=== PATIENT | female | born 1950 | race Caucasian/White ===

== ENCOUNTER 2016-11-09 18:28 | Inpatient (IN) ==
[2016-11-09 19:14] LABS: Basophils # 0.1 K/mcL (0.0-0.2); Basophils % 0.7 %; Eosinophils # 0.3 K/mcL (0.0-0.6); Eosinophils % 3.2 %; Hematocrit 35.6 % (35.3-44.9); Hemoglobin 11.9 g/dL (11.5-15.4); Immature Granulocytes % 0.4 % (0-4); Lymphocytes # 1.4 K/mcL (0.6-4.6); Lymphocytes % 16.5 %; Mean Corpuscular HGB Conc 33.4 g/dL (31.6-35.5); Mean Corpuscular Hemoglobin 29.3 pg (28.0-33.3); Mean Corpuscular Volume 87.7 fL (83.0-100.0); Mean Platelet Volume 10.3 fL (9.4-12.4); Monocytes # 0.6 K/mcL (0.0-1.3); Monocytes % 6.6 %; Neutrophils # 6.2 K/mcL (1.6-8.9); Platelet Count 188 K/mcL (140-400); Red Blood Count 4.06 M/mcL (3.82-4.97); Red Cell Distribution Width 13.2 % (11.5-14.5); Segmented Neutrophils % 72.6 %
[2016-11-09 19:22] LABS: INR 2.2; Prothrombin Time 24.8 Seconds (9.4-12.1)
[2016-11-09 19:25] LABS: Activated Partial Thrombo Time 44.2 Seconds (26.0-36.0)
[2016-11-09 19:31] LABS: BUN/Creatinine Ratio 34 (6-26); Blood Urea Nitrogen 28 mg/dL (7-20); Calcium 8.9 mg/dL (8.6-10.8); Carbon Dioxide 32 mEq/L (19-29); Chloride 99 mEq/L (98-109); Glucose 249 mg/dL (70-99); Osmolality,Calculated 298 (280-300); Potassium 4.8 mEq/L (3.5-4.5); Sodium 137 mEq/L (136-145); eGFR For African Americans > 60 (> 60); eGFR For Non-African Americans > 60 (> 60)
[2016-11-09 19:32] LABS: Albumin 2.9 g/dL (3.5-5.0); Albumin/Globulin Ratio 0.8 (1.1-2.2); Bilirubin,Direct 0.1 mg/dL (0.0-0.5); Bilirubin,Indirect 0.1 mg/dL (0.0-1.2); Bilirubin,Total 0.2 mg/dL (0.2-1.2); Globulin 3.7 g/dL (2.4-3.5); Total Protein 6.6 g/dL (6.0-8.3)
[2016-11-09] MEDS ORDERED: Nitroglycerin 0.4 MG TAB.SUBL SL PRN (19:52)
[2016-11-09] MEDS ORDERED: Aspirin 81 MG TAB.CHEW PO ONE (20:30)
--- NOTE | 2016-11-09 20:36 | Emergency Department Note ---
Disposition Clinical Impression: NSTEMI (non-ST elevated myocardial infarction), Angina at rest Disposition: Admitted As Inpatient Referrals: Pedro Luis Whitfield MD [Primary Care Provider] - Forms: ED Satisfaction Letter Chest Pain HPI - General Chief Complaint: ED Chest Pain Stated Complaint: cp Source: EMS Mode of arrival: EMS Limitations: no limitations Vital Signs Reviewed: Yes Nursing Notes Reviewed: Yes - History of Present Illness Pt complaint: chest pain Onset (ago): hour(s) (3) Duration: constant Onset: during rest Pain Location: substernal Severity scale (1-10): 10 Quality: heaviness Pain Radiation: none Improves with: nothing Worsens with: nothing Associated symptoms: Reports: nausea. Denies: vomiting, diaphoresis, sense of impending doom, cough Treatments prior to arrival chest pain: none - Related Data Home Medications Medication Instructions Recorded Confirmed Esomeprazole Magnesium [Nexium] 40 mg PO DAILY 02/18/15 05/17/16 Pregabalin [Lyrica] 50 mg PO TID 09/29/15 05/17/16 Previous Rx's Medication Instructions Recorded Cholecalciferol (D-3) [Vitamin D] 2,000 unit PO DAILY tablet 07/05/16 Collagenase Oint [Santyl] 1 appl TP DAILY tube 07/05/16 FLUoxetine HCl [Prozac] 20 mg PO DAILY capsule 07/05/16 Fluticasone Propionate Nasal 50 mcg NS DAILY bottle 07/05/16 [Flonase] Insulin Glargine,Hum.rec.anlog 50 unit SQ HS #0 07/05/16 [Lantus Solostar] Lactulose 30 gm PO DAILY udc 07/05/16 MOM Conc [MILK OF MAGNESIA conc] 15 ml PO Q48H ud.liq 07/05/16 Ondansetron ODT [Zofran ODT] 4 mg SL Q4HR PRN #0 tab.rapdis 07/05/16 Oxymetazoline [Afrin] 2 spray NS Q12HR PRN #0 bottle 07/05/16 Patient Taking Own Medication 1 each IM Q4W each 07/05/16 Preparation H Ointment 1 appl RC QID PRN #0 tube 07/05/16 Sennosides/Docusate Sodium [Senna 1 each PO DAILY tablet 07/05/16 Plus] Simethicone [Gas-X] 80 mg PO QID PRN #0 tab.chew 07/05/16 Simvastatin [Zocor] 40 mg PO HS 365 Days 07/05/16 Sotalol [Betapace] 80 mg PO Q12HR tablet 07/05/16 Terazosin [Hytrin] 10 mg PO HS capsule 07/05/16 Warfarin [Coumadin] 0.5 mg PO DAILY@1800 tablet 07/05/16 Warfarin [Coumadin] 4 mg PO DAILY@1800 tablet 07/05/16 lamoTRIgine [Lamictal] 100 mg PO HS tablet 07/05/16 Allergies Allergy/AdvReac Type Severity Reaction Status Date / Time cephalexin [From Keflex] Allergy Hives Verified 03/27/16 16:22 Penicillins Allergy Hives Verified 03/27/16 16:22 venom-honey bee Allergy Anaphylaxis Verified 03/27/16 16:22 [bee venom (honey bee)] All systems ED: reviewed and negative except as stated. 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 tubal ligation - Social History Smoking Status: Never smoker Alcohol use: Reports: none Drug use: Reports: none Physical Exam - General General appearance: alert, in no apparent distress - Head Head exam: atraumatic, normocephalic, normal inspection - Eye Eye exam: Present: normal appearance, PERRL, EOMI - ENT ENT exam: normal exam, normal oropharynx, mucous membranes moist - Neck Neck exam: Present: normal inspection, full ROM, trachea midline - Chest Chest inspection: Present: normal inspection, symmetric chest wall rise - Respiratory Respiratory exam: Present: normal lung sounds bilaterally - Cardiovascular Cardiovascular exam: Present: regular rate, normal rhythm, normal heart sounds - Abdominal Exam Abdominal exam: Present: soft, Non-Tender. Absent: tenderness, distention, guarding, rebound, rigidity - Expanded Lower Extremity Exam Lower leg exam: Present: other (Decreased strength lower extremities secondary to stroke patient is unable to ambulate) - Back Exam Back exam: Present: normal inspection, full ROM. Absent: tenderness - Neurological Exam Neurological exam: Present: alert, oriented X3 - Psychiatric Psychiatric exam: Present: flat affect - Skin Skin exam: Present: warm, dry, intact, normal color Course - Consultations Consultation #1: dr. chao serial trop, no plavis, aspirin ok, echo, cardiology consult Time: 20:32 Vital Signs Temperature 98.1 F 11/09/16 18:29 Pulse Rate 85 11/09/16 18:29 Respiratory Rate 16 11/09/16 18:29 Blood Pressure 191/80 11/09/16 18:29 O2 Sat by Pulse Oximetry 94 11/09/16 18:29 Temperature 98.1 F 11/09/16 18:29 Pulse Rate 75 11/09/16 20:30 Respiratory Rate 20 11/09/16 20:30 Blood Pressure 126/74 11/09/16 20:30 O2 Sat by Pulse Oximetry 95 11/09/16 20:45 Oxygen Delivery Oxygen Delivery Nasal Cannula Chest Pain - Differential Diagnosis Likely: atypical chest pain - Medical Records Medical records reviewed: Yes I reviewed the patient's medical records. - Lab Data Lab results reviewed: Yes I reviewed the patient's lab results. Result diagrams: 11/09/16 18:58 11/09/16 18:58 Lab Results 11/09/16 11/09/16 11/09/16 Range/Units 18:58 18:58 18:58 WBC (4.3-11.1) K/mcL RBC (3.82-4.97) M/mcL Hgb (11.5-15.4) g/dL Hct (35.3-44.9) % MCV (83.0-100.0) fL MCH (28.0-33.3) pg MCHC (31.6-35.5) g/dL RDW (11.5-14.5) % Plt Count (140-400) K/mcL MPV (9.4-12.4) fL Immature Gran % (0-4) % Seg Neutrophils % % Lymphocytes % % Monocytes % % Eosinophils % % Basophils % % Neutrophils # (1.6-8.9) K/mcL Lymphocytes # (0.6-4.6) K/mcL Monocytes # (0.0-1.3) K/mcL Eosinophils # (0.0-0.6) K/mcL Basophils # (0.0-0.2) K/mcL PT 24.8 H (9.4-12.1) Seconds INR 2.2 APTT 44.2 H (26.0-36.0) Seconds Sodium (136-145) mEq/L Potassium (3.5-4.5) mEq/L Chloride (98-109) mEq/L Carbon Dioxide (19-29) mEq/L BUN (7-20) mg/dL Creatinine (0.57-1.11) mg/dL Est GFR ( Amer) (> 60) Est GFR (Non-Af Amer) (> 60) BUN/Creatinine Ratio (6-26) Glucose (70-99) mg/dL Calculated Osmolality (280-300) Calcium (8.6-10.8) mg/dL Total Bilirubin 0.2 (0.2-1.2) mg/dL Direct Bilirubin 0.1 (0.0-0.5) mg/dL Indirect Bilirubin 0.1 (0.0-1.2) mg/dL AST 16 (5-34) Units/L ALT 10 (0-55) Units/L Alkaline Phosphatase 117 (38-126) Units/L Troponin I (0-0.03) ng/mL B-Natriuretic Peptide 87 (0-100) pg/mL Serum Total Protein 6.6 (6.0-8.3) g/dL Albumin 2.9 L (3.5-5.0) g/dL Globulin 3.7 H (2.4-3.5) g/dL Albumin/Globulin Ratio 0.8 L (1.1-2.2) Lipase 20 (8-78) Units/L 11/09/16 11/09/16 11/09/16 Range/Units 18:58 18:58 18:58 WBC 8.5 (4.3-11.1) K/mcL RBC 4.06 (3.82-4.97) M/mcL Hgb 11.9 (11.5-15.4) g/dL Hct 35.6 (35.3-44.9) % MCV 87.7 (83.0-100.0) fL MCH 29.3 (28.0-33.3) pg MCHC 33.4 (31.6-35.5) g/dL RDW 13.2 (11.5-14.5) % Plt Count 188 (140-400) K/mcL MPV 10.3 (9.4-12.4) fL Immature Gran % 0.4 (0-4) % Seg Neutrophils % 72.6 % Lymphocytes % 16.5 % Monocytes % 6.6 % Eosinophils % 3.2 % Basophils % 0.7 % Neutrophils # 6.2 (1.6-8.9) K/mcL Lymphocytes # 1.4 (0.6-4.6) K/mcL Monocytes # 0.6 (0.0-1.3) K/mcL Eosinophils # 0.3 (0.0-0.6) K/mcL Basophils # 0.1 (0.0-0.2) K/mcL PT (9.4-12.1) Seconds INR APTT (26.0-36.0) Seconds Sodium 137 (136-145) mEq/L Potassium 4.8 H (3.5-4.5) mEq/L Chloride 99 (98-109) mEq/L Carbon Dioxide 32 H (19-29) mEq/L BUN 28 H (7-20) mg/dL Creatinine 0.83 (0.57-1.11) mg/dL Est GFR ( Amer) > 60 (> 60) Est GFR (Non-Af Amer) > 60 (> 60) BUN/Creatinine Ratio 34 H (6-26) Glucose 249 H (70-99) mg/dL Calculated Osmolality 298 (280-300) Calcium 8.9 (8.6-10.8) mg/dL Total Bilirubin (0.2-1.2) mg/dL Direct Bilirubin (0.0-0.5) mg/dL Indirect Bilirubin (0.0-1.2) mg/dL AST (5-34) Units/L ALT (0-55) Units/L Alkaline Phosphatase (38-126) Units/L Troponin I 0.17 H* (0-0.03) ng/mL B-Natriuretic Peptide (0-100) pg/mL Serum Total Protein (6.0-8.3) g/dL Albumin (3.5-5.0) g/dL Globulin (2.4-3.5) g/dL Albumin/Globulin Ratio (1.1-2.2) Lipase (8-78) Units/L - Radiology Data Radiology results reviewed: Yes I reviewed the patient's radiology results. - EKG Data EKG shows normal: sinus rhythm Rate: normal Interpretation: nonspecific ST-T wave changes Critical Care Time Critical Care Time: Yes Total Critical Care Time: 35 Attestation: Critical care performed: Time is exclusive of separately billable procedures. Time includes: direct patient care, patient reassessment, coordination of patient care, interpretation of data (laboratory data, radiology data, and respiratory data), review of patient's medical records, medical consultation and documentation of patient care. Procedures included in critical care time: Procedures excluded from critical care time:
[2016-11-09] MEDS ORDERED: Nitroglycerin 25 MG/250 ML INFUS..BTL IVC SCH (21:15)
[2016-11-09] MEDS: Nitroglycerin 25 MG/250 ML INFUS..BTL IVC SCH (21:47)
[2016-11-09] MEDS ORDERED: *HR* Morphine 2 MG/ML SYRINGE IVP ONE (23:24)
[2016-11-09] MEDS ORDERED: 0.9 % Sodium Chloride 500 ML ONE (23:36)
[2016-11-10] MEDS ORDERED: Naloxone 0.4 MG/ML INJ IVP PRN (00:37)
--- NOTE | 2016-11-10 00:37 | Internal Med History&Physical ---
Date of Encounter: 11/10/16 Time of Encounter: 00:36 Assessment and Plan (1) NSTEMI (non-ST elevated myocardial infarction) Current visit: Yes Status: Acute Pt is on nitroglycerine infusion - continue. INR is therapeutic. Continue aspirin. Cardiology consultation, for possible cardiac catheterization. Check lipid panel. (2) CVA (cerebral vascular accident) Current visit: Yes Status: Chronic supportive care. will need further rehab after discharge Qualifiers: CVA mechanism: unspecified Qualified Code(s): I63.9 - Cerebral infarction, unspecified (3) DM type 2 (diabetes mellitus, type 2) Current visit: Yes Status: Chronic Start sliding scale insulin Qualifiers: Diabetes mellitus complication status: with unspecified complications Diabetes mellitus chcf insulin use: with moth exterminator use Qualified Code(s) : E11.8 - Type 2 diabetes mellitus with unspecified complications; Z79.4 - long term care pharmacist (current) use of insulin (4) Atrial fibrillation Current visit: No Status: Resolved Pt now in sinus rhythm. continue anticoagulation Qualifiers: Atrial fibrillation type: paroxysmal Qualified Code(s): I48.0 - Paroxysmal atrial fibrillation (5) Hypertension Current visit: Yes Status: Chronic Continue home medications, but hold while on NTG infusion Qualifiers: Hypertension type: essential hypertension Qualified Code(s): I10 - Essential (primary) hypertension (6) Chronic anticoagulation Current visit: Yes Status: Chronic On warfarin. Monitor INR Internal Medicine - H&P: HPI Chief complaint: Chest pain Admitted From: Emergency Dept Plans for Post Hospital Care: Transfer [facility]irement Facility History of present illness: Ms. Beaver is a 66 year old female With h/o atrial fibrillation on anticoagulation with warfarin, CHF, coronary artery disease, CVA (Jun 2016) with left sided weakness (in rehab), diabetes, GERD, hyperlipidemia, hypertension. She presents with sharp / heavy, continuous central chest pain, 10/10 in severity; radiating to both arms. Pain started yesterday afternoon, unrelated to exertion and persisted after presentation to the ER. She reports some nausea but no vomiting. She denies palpitations, sweating, shortness of breath, cough, expectoration, abdominal pain. She has a Coronado catheter in place. She was evaluated in the emergency department and was noted have elevated troponin of 0.17. Her INR was 2.2 and no further anticoagulation was recommended by marketing account manager. She was started on aspirin, nitroglycerine infusion , after the ER physician discussed with the marketing account manager Dr. Dixon. She is admitted to the hospitalist service for further management. Past Med Surg Social Fam HX - Past Medical History Medical history: atrial fibrillation, CHF, coronary artery disease, CVA, diabetes, GERD, glaucoma, hyperlipidemia, hypertension, pulmonary embolus, renal disease Psychiatric history: anxiety, bipolar, depression - Past Surgical History Surgical History: angioplasty/stent, cholecystectomy, herniorrhaphy, hysterectomy, knee replacement - Social History Smoking Status: Never smoker Smokeless Tobacco Status: No Alcohol use: none Drug use: none - Family History Mother Family Member Ethnicity: Non- Living Status: Hx Family Cardiac Disorders: Yes Hx Family Respiratory Disorders: Yes (COPD) Hx Family Neurologic Disorders: Yes Father Adopted: [place]: Abhinav Harris Family Member Ethnicity: Non- Living Status: Age at : 81 Cause of : heart attack Hx Family Cardiac Disorders: Yes Hx Family Respiratory Disorders: No Hx Family Cancer: No Hx Family GI Disorders: No Hx Family Endocrine Disorder: No Hx Family Neuromuscular Disorders: No Hx Family Neurologic Disorders: No Hx Family HEENT Disorders: No Hx Family Autoimmune Disorders: No Hx Family Reproductive Disorders: No Internal Medicine - H&P: Meds Pregabalin [Lyrica] 50 mg PO TID 09/29/15 [History] Fluticasone Propionate Nasal [Flonase] 50 mcg NS DAILY bottle 07/05/16 [Rx] Lactulose 30 gm PO DAILY udc 07/05/16 [Rx] MOM Conc [MILK OF MAGNESIA conc] 15 ml PO Q48H ud.liq 07/05/16 [Rx] Ondansetron ODT [Zofran ODT] 4 mg SL Q4HR PRN #0 tab.rapdis 07/05/16 [Rx] Sennosides/Docusate Sodium [Senna Plus] 1 each PO DAILY tablet 07/05/16 [Rx] Sotalol [Betapace] 80 mg PO Q12HR tablet 07/05/16 [Rx] Terazosin [Hytrin] 10 mg PO HS capsule 07/05/16 [Rx] lamoTRIgine [Lamictal] 100 mg PO HS tablet 07/05/16 [Rx] ALPRAZolam [Xanax 0.5 MG Tablet] 0.5 mg PO BID PRN 11/09/16 [History] Acetaminophen [Tylenol] 500 mg PO TID PRN 11/09/16 [History] Atorvastatin Calcium [Lipitor] 20 mg PO HS 11/09/16 [History] Cholecalciferol (D-3) [Vitamin D] 3,000 unit PO DAILY 11/09/16 [History] Collagenase Oint [Santyl] 1 appl TP BID 11/09/16 [History] DULoxetine [Cymbalta] 20 mg PO DAILY 11/09/16 [History] Insulin Glargine,Hum.rec.anlog [Lantus Solostar] 40 unit SQ HS 11/09/16 [History ] Omeprazole [PriLOSEC] 20 mg PO DAILY 11/09/16 [History] Oxymetazoline [Afrin] 2 spray NS Q12HR PRN 11/09/16 [History] Paliperidone Palmitate [Invega Sustenna] 156 mg IM QMONTH 11/09/16 [History] Simethicone [Bicarsim] 80 mg PO ACHS 11/09/16 [History] Simethicone [Gas-X] 80 mg PO Q4H PRN 11/09/16 [History] Warfarin perPT [Coumadin perPT] 7 mg PO DAILY 11/09/16 [History] Allergies cephalexin [From Keflex] Allergy (Verified 03/27/16 16:22) Hives Penicillins Allergy (Verified 03/27/16 16:22) Hives venom-honey bee [bee venom (honey bee)] Allergy (Verified 03/27/16 16:22) Anaphylaxis All Systems PM: A 10-system review of systems was performed and is negative for pertinent findings except as documented above in the HPI. - Constitutional Vitals: Temp Pulse Resp BP Pulse Ox 97.6 F 62 17 144/78 96 11/09/16 23:20 11/09/16 23:20 11/09/16 23:20 11/09/16 23:20 11/09/16 23:20 Exam: General: Not in acute distress at the time of my evaluation HEENT: Oral mucosa is moist. No conjunctival palor or scleral icterus Neck: No obvious neck swellings Lungs: Clear to auscultation Cardiac: Regular rate and rhythm. No significant murmurs Abdomen: Soft, non tender. Bowel sounds present Genitourinary: Coronado catheter in place Neurological: Alert and oriented. Known CVA with left sided weakness (LLE >> LUE ) Psych: Not aggressive or agitated Extremities: Mild leg edema Skin: No generalized rash Internal Med - H&P Results - Labs CBC & Chem 7: 11/09/16 18:58 11/10/16 01:30 - EKG Data -: EKG Interpreted by Myself - EKG Data EKG comments: No acute ST-T changes 11/10/16 05:43 - Impressions ITS Impressions Chest X-Ray 11/09/16 18:43 IMPRESSION: No acute cardiopulmonary process. D/ / 11/09/2016 19:23:00 Roxane Yeager MD / lius m Interpreting Provider: Roxane Yeager MD
[2016-11-10] MEDS ORDERED: Dextrose Gel 15 GM PO PRN ×2 (00:41)
[2016-11-10] MEDS ORDERED: *HR* Dextrose 50 % in Water (Syg) 50 ML SYRINGE IVP PRN (00:41)
[2016-11-10] MEDS ORDERED: D5% in Water 1,000 ML IVC PRN (00:41)
[2016-11-10 02:25] LABS: INR 2.2; Prothrombin Time 24.8 Seconds (9.4-12.1)
[2016-11-10 02:42] LABS: BUN/Creatinine Ratio 38 (6-26); Blood Urea Nitrogen 30 mg/dL (7-20); Calcium 8.9 mg/dL (8.6-10.8); Carbon Dioxide 35 mEq/L (19-29); Chloride 99 mEq/L (98-109); Chol/HDL Ratio 3.4 (0-4.9); Cholesterol 142 mg/dL (< 200); Glucose 192 mg/dL (70-99); HDL Cholesterol 42 mg/dL (40-59); LDL Cholesterol,Calculated 75 mg/dL (0-99); Osmolality,Calculated 301 (280-300); Potassium 4.8 mEq/L (3.5-4.5); Sodium 140 mEq/L (136-145); Triglycerides 124 mg/dL (< 150); eGFR For African Americans > 60 (> 60); eGFR For Non-African Americans > 60 (> 60)
[2016-11-10] MEDS: *HR* Morphine 2 MG/ML SYRINGE IVP PRN ×3 (03:10→21:07)
[2016-11-10] MEDS ORDERED: ALPRAZolam 0.5 MG TABLET PO PRN (05:50)
[2016-11-10] MEDS: Aspirin 81 MG TAB.CHEW PO SCH (07:45)
[2016-11-10] MEDS: Fluticasone Propionate Nasal 50 MCG/SPRAY BOTTLE NS SCH (07:45)
[2016-11-10] MEDS: Pregabalin 50 MG CAPSULE PO SCH ×3 (07:45→21:41)
[2016-11-10] MEDS: Insulin LISPRO 300 UNITS/3 ML VIAL SQ SCH ×4 (07:45→21:43)
[2016-11-10] MEDS: Cholecalciferol (D-3) 1,000 UNIT TABLET PO SCH (07:56)
--- NOTE | 2016-11-10 08:45 | Cardiology Consult Note ---
Date of Encounter: 11/10/16 Time of Encounter: 08:45 Assessment and Plan (1) NSTEMI (non-ST elevated myocardial infarction) Current Visit: Yes Status: Acute Per Cardiology: Peak troponin 6.97. Currently on aspirin, statin, and nitro drip. CP continuous , but appears stable. Titrate NTG PRN. Will check limited echo-- last echo 2015 with EF 60-65% and no significant valvular dysfunction. Recommend LHC, however INR currently 2.2 and concerns for another CVA in 06/2016? Will attempt to obtain medical records from [facility]. Will hold Coumadin for now. Discussed and reviewed with Dr. Baudilio Lu and Dr. Hoffmann. (2) CAD (coronary artery disease) Current Visit: No Status: Chronic Per Cardiology: Known history of CAD with last heart catheterization in October 2013 showed patent stent to proximal LAD, 30% in-stent restenosis of the mid LAD, 30% proximal circumflex, mid RCA 30%, ostial right PDA small vessel 60-70% stenosis. Last echo June 2015 showed EF 60-65%, mild diastolic dysfunction, mild pulmonary hypertension, no significant valvular dysfunction. Qualifiers: Coronary Disease-Associated Artery/Lesion type: [place] artery [place] vs. transplanted heart: [place] heart Associated angina: angina presence unspecified Qualified Code(s): I25.10 - Atherosclerotic heart disease of [place] coronary artery without angina pectoris (3) Atrial fibrillation Current Visit: No Status: Chronic Per Cardiology: History of SVT and paroxysmal atrial fibrillation. Average heart rate on telemetry 60, currently sinus rhythm. Will resume home dose of sotalol 80 mg by mouth every 12 hours. Qualifiers: Atrial fibrillation type: paroxysmal Qualified Code(s): I48.0 - Paroxysmal atrial fibrillation (4) Chronic anticoagulation Current Visit: Yes Status: Chronic Per Cardiology: On Coumadin for paroxysmal atrial defibrillation and had CVA April 2016 at [facility]. Current INR 2.2. Will hold for now in anticipation of LHC during hospital stay. Discussion w patient/family: The assessment and plan as outlined above was discussed with the patient who expressed understanding and agreement. All questions were answered. Thank you for involving us in the care of your patient. Please call with any questions. History of Present Illness Consult date: 11/10/16 Requesting physician: Roman Sanchez Consult reason: NSTEMI Chief complaint: CP History of present illness: Ms. Sd is a 66 year old female with a relevant past medical history of CAD, SVT, atrial fibrillation on sotalol and Coumadin, hypertension, diabetes moist 2, hyperlipidemia, sleep apnea, peripheral vascular disease with carotid endarterectomy, and CVA April 2016. Last seen by myself in July 2016 in office. Was noted to have had a CVA at [facility] in April 2016. Cardiology consult today for non-STEMI. Patient reports developed midsternal chest pain and heaviness yesterday afternoon at rest. She indicates accompanying shortness of breath and bilateral arm pain. Reports chest pain has been continuous and currently about a 4 out of 10. She reports continued left-sided weakness from her stroke. She now reports she believes she's had 2 strokes, April 2016 and reported in June 2016. Denies any fever, chills, nausea, vomiting, diarrhea. Denies any awareness of any active bleeding or blood loss. Denies any palpitations, dizziness, or falls. Past Med Surg Social Fam HX - Past Medical History Attestation: Yes The following information was validated with the patient. Source: patient, old records reviewed Medical history: atrial fibrillation, CHF, coronary artery disease, CVA, diabetes, GERD, glaucoma, hyperlipidemia, hypertension, pulmonary embolus, renal disease Psychiatric history: anxiety, bipolar, depression - Past Surgical History Surgical History: angioplasty/stent, cholecystectomy, herniorrhaphy, hysterectomy, knee replacement - Social History Smoking Status: Never smoker Smokeless Tobacco Status: No Alcohol use: none Drug use: none - Family History Mother Family Member Ethnicity: Non- Living Status: Hx Family Cardiac Disorders: Yes Hx Family Respiratory Disorders: Yes (COPD) Hx Family Neurologic Disorders: Yes Father Adopted: [place]: Abhinav Harris Family Member Ethnicity: Non- Living Status: Age at : 81 Cause of : heart attack Hx Family Cardiac Disorders: Yes Hx Family Respiratory Disorders: No Hx Family Cancer: No Hx Family GI Disorders: No Hx Family Endocrine Disorder: No Hx Family Neuromuscular Disorders: No Hx Family Neurologic Disorders: No Hx Family HEENT Disorders: No Hx Family Autoimmune Disorders: No Hx Family Reproductive Disorders: No Medications and Allergies Pregabalin [Lyrica] 50 mg PO TID 09/29/15 [History] Fluticasone Propionate Nasal [Flonase] 50 mcg NS DAILY bottle 07/05/16 [Rx] Lactulose 30 gm PO DAILY udc 07/05/16 [Rx] MOM Conc [MILK OF MAGNESIA conc] 15 ml PO Q48H ud.liq 07/05/16 [Rx] Ondansetron ODT [Zofran ODT] 4 mg SL Q4HR PRN #0 tab.rapdis 07/05/16 [Rx] Sennosides/Docusate Sodium [Senna Plus] 1 each PO DAILY tablet 07/05/16 [Rx] Sotalol [Betapace] 80 mg PO Q12HR tablet 07/05/16 [Rx] Terazosin [Hytrin] 10 mg PO HS capsule 07/05/16 [Rx] lamoTRIgine [Lamictal] 100 mg PO HS tablet 07/05/16 [Rx] ALPRAZolam [Xanax 0.5 MG Tablet] 0.5 mg PO BID PRN 11/09/16 [History] Acetaminophen [Tylenol] 500 mg PO TID PRN 11/09/16 [History] Atorvastatin Calcium [Lipitor] 20 mg PO HS 11/09/16 [History] Cholecalciferol (D-3) [Vitamin D] 3,000 unit PO DAILY 11/09/16 [History] Collagenase Oint [Santyl] 1 appl TP BID 11/09/16 [History] DULoxetine [Cymbalta] 20 mg PO DAILY 11/09/16 [History] Insulin Glargine,Hum.rec.anlog [Lantus Solostar] 40 unit SQ HS 11/09/16 [History ] Omeprazole [PriLOSEC] 20 mg PO DAILY 11/09/16 [History] Oxymetazoline [Afrin] 2 spray NS Q12HR PRN 11/09/16 [History] Paliperidone Palmitate [Invega Sustenna] 156 mg IM QMONTH 11/09/16 [History] Simethicone [Bicarsim] 80 mg PO ACHS 11/09/16 [History] Simethicone [Gas-X] 80 mg PO Q4H PRN 11/09/16 [History] Warfarin perPT [Coumadin perPT] 7 mg PO DAILY 11/09/16 [History] Allergies cephalexin [From Keflex] Allergy (Verified 03/27/16 16:22) Hives Penicillins Allergy (Verified 03/27/16 16:22) Hives venom-honey bee [bee venom (honey bee)] Allergy (Verified 03/27/16 16:22) Anaphylaxis All Systems Review: A 10-system review of systems was performed and is negative for pertinent findings except as documented above in the HPI. - Cardiovascular Cardiovascular: as per HPI, chest pain at rest, dyspnea at rest, radiating jaw, neck or arm pain Physical Examination Vital Signs, Last 4 Hours Temp Pulse Resp BP 11/10/16 07:30 97.7 F 60 16 135/71 General: Conversant, No Apparent Distress HEENT: Atraumatic, Normocephaly, Mucus Membranes Moist Neck: No JVD, Normal carotid pulses Cardiac: Reg Rate and Rhythm, Normal S1 and S2, No Murmur Lungs: Normal Breath Sounds, No Wheeze, Rales, Rhonchi Neuro: Alert and responsive, Other (Left-sided weakness, flat affect, speech slow and deliberate) Abdomen: Soft, Non-Tender, Other (obese) Musculoskeletal: No Chest Wall Tenderness Extremities: No Edema, Normal Pulses Results 11/09/16 18:58 11/10/16 01:30 Lab Results Laboratory Tests 11/09/16 11/10/16 11/10/16 18:58 01:30 01:30 INR 2.2 Troponin I 0.17 H* 6.76 H* 11/10/16 06:35 INR Troponin I 6.97 H* ITS Impressions Chest X-Ray 11/09/16 18:43 IMPRESSION: No acute cardiopulmonary process. D/ / 11/09/2016 19:23:00 Roxane Yeager MD / [facility] Interpreting Provider: Roxane Yeager MD Active Medications Alprazolam (Xanax) 0.5 mg PO BID PRN; Protocol PRN Reason: Anxiety Stop: 05/12/17 05:51 Aspirin (Aspirin) 81 mg PO DAILY LAW Stop: 05/12/17 09:01 Last Admin: 11/10/16 07:45 Dose: 81 mg Atorvastatin Calcium (Lipitor) 20 mg PO HS LAW Stop: 05/12/17 21:01 Dextrose/Water (Dextrose 50% (Syg)) 25 ml IVP AD PRN PRN Reason: Hypoglycemia Stop: 05/12/17 00:42 Duloxetine HCl (Cymbalta) 20 mg PO DAILY LAW Stop: 05/12/17 09:01 Last Admin: 11/10/16 07:45 Dose: 20 mg Fluticasone Propionate (Flonase) 50 mcg NS DAILY LAW PRN Reason: Protocol Stop: 05/12/17 09:01 Last Admin: 11/10/16 07:45 Dose: 50 mcg Glucagon (Glucagen) 1 mg IM ONCE PRN PRN Reason: Hypoglycemia Stop: 05/12/17 00:42 Glucose (Gluctose) 15 gm PO ONCE PRN PRN Reason: Hypoglycemia Stop: 05/12/17 00:42 Glucose (Gluctose) 30 gm PO ONCE PRN PRN Reason: Hypoglycemia Stop: 05/12/17 00:42 Nitroglycerin (Nitroglycerin) 25 mg in 250 mls @ 3 mls/hr IVC .Q24H LAW; 5 MCG/ MIN PRN Reason: Protocol Stop: 05/11/17 21:31 Last Titration: 11/10/16 03:08 Dose: 15 mcg/min, 9 mls/hr Dextrose (Dextrose 5%) 1,000 mls @ 100 mls/hr IVC .Q10H PRN PRN Reason: HYPOGLYCEMIA Stop: 05/12/17 00:42 Insulin Detemir (Levemir) 40 unit SQ HS LAW Stop: 05/12/17 21:01 Insulin Human Lispro (Humalog) 0 units SQ HS LAW PRN Reason: Protocol Stop: 05/12/17 21:01 Insulin Human Lispro (Humalog) 0 units SQ TIDAC LAW PRN Reason: Protocol Stop: 05/12/17 07:31 Last Admin: 11/10/16 07:45 Dose: Not Given Lamotrigine (Lamictal) 100 mg PO HS LAW Stop: 05/12/17 21:01 Morphine Sulfate (Morphine Sulfate) 2 mg IVP Q2H PRN PRN Reason: Chest pain unresolved with NTG Stop: 05/12/17 00:41 Last Admin: 11/10/16 07:46 Dose: 2 mg Naloxone HCl (Narcan) 0.4 mg IVP Q2MIN PRN PRN Reason: Opioid Reversal Stop: 05/12/17 00:38 Nitroglycerin (Nitroglycerin) 0.4 mg SL Q5MIN PRN PRN Reason: Chest Pain Stop: 05/11/17 19:53 Last Admin: 11/09/16 20:04 Dose: 0.4 mg Omeprazole (Prilosec) 20 mg PO DAILY [facility] PRN Reason: Protocol Stop: 05/12/17 09:01 Last Admin: 11/10/16 07:45 Dose: 20 mg Pregabalin (Lyrica) 50 mg PO TID LAW Stop: 05/12/17 09:01 Last Admin: 11/10/16 07:45 Dose: 50 mg Terazosin HCl (Hytrin) 10 mg PO HS [facility] Stop: 05/12/17 21:01 Vitamin D (Vitamin D) 3,000 unit PO DAILY [facility] Stop: 05/12/17 09:01 Last Admin: 11/10/16 07:56 Dose: 3,000 unit Warfarin Sodium (Coumadin Perpt) 1 each PO DAILY@1800 PRN PRN Reason: SEE COMMENTS Stop: 05/12/17 18:01 Warfarin Sodium 3 mg/ Warfarin (Sodium 4 mg) 7 mg PO 1800 [facility] Stop: 05/12/17 18:01 - Imaging and Cardiology Chest Xray: report reviewed Echo: report reviewed Cardiac cath: report reviewed - EKG Interpretation EKG results cardiology: personally reviewed, normal ECG, sinus rhythm (SR 80's) , other (Telemetry reviewed with average heart rate past 12 hours 80, sinus rhythm, no A. fib noted) Consult Discharge Plan - Plan Referrals: Pedro Luis Whitfield MD [Primary Care Provider] -
[2016-11-10 10:15] LABS: Bilirubin,Urine Negative (Negative); Blood,Urine Moderate (Negative); Clarity,Urine Turbid (Clear); Color,Urine Yellow (Yellow); Glucose,Urine (UA) 100 mg/dL (Normal); Ketones,Urine Negative (Negative); Leukocyte Esterase,Urine Moderate (Negative); Nitrite,Urine Positive (Negative); Protein,Urine 100 mg/dL (Neg-Trace); Specific Gravity,Urine 1.021 (1.010-1.025); Urobilinogen,Urine Normal (Normal)
[2016-11-10 10:18] LABS: Bacteria,Urine Many per hpf (None-Few); Hyaline Casts,Urine Moderate per lpf (None-Few); Squamous Epithelial Cell,Urine Few per lpf (None-Few); WBC,Urine TNTC per hpf (0-3)
[2016-11-10 10:35] LABS: Amorphous Sediment,Urine Many (Few); Yeast,Urine Few per hpf (None Seen)
[2016-11-10 10:36] LABS: Mucus,Urine Moderate (Few)
--- NOTE | 2016-11-10 10:42 | Electrocardiograph Report ---
[address] [address] Test Date: 2016-11-09 Pat Name: Iliana Beaver Department: 102 Room: 2A44 Gender: F Meter Reader Inspector: Celia : 1950 Requested By: Ramses Clark Order Number: [id number] Reading MD: Baudilio Lu Measurements Intervals [place] Rate: 88 P: 45 OK: 178 QRS: -12 QRSD: 93 T: 81 QT: 359 QTc: 405 Interpretive Statements SINUS RHYTHM NONSPECIFIC T-WAVE ABNORMALITY Electronically Signed On 11-10-2016 10:40:50 EDT by Baudilio Lu
--- NOTE | 2016-11-10 13:54 | Event Note ---
Date of Encounter: 11/10/16 Time of Encounter: 12:00 66-year-old female with history of CAD, atrial fibrillation, CVA, diabetes, is sent from [facility] for evaluation of chest pain. Patient is noted to have ongoing chest pain along with elevated troponins. Patient seen and examined at bedside. Reports ongoing retrosternal chest pain, partially relieved with pain medications. No shortness of breath, palpitations or syncope. Awake and alert, oriented to place and person. Chest-S1, S2 heard. Regular rate and rhythm. Lungs are clear to auscultation anterolaterally bilaterally. Reviewed labs-troponin elevated from 0.17 to 6.7. Non-ST elevation [place]-continue and titrate IV nitroglycerin drip and when necessary IV morphine for chest pain. Patient received aspirin in the emergency room. She is noted to be anticoagulated with Coumadin with therapeutic INR, hence no further anticoagulation recommended. Cardiology consult appreciated, trying to obtain medical records from [facility] as patient reports she had a recent stroke in June 2016. Continue aspirin, and statin. Patient will likely receive left heart catheterization in the hospital. Continue telemetry monitoring and cycle troponins. Atrial fibrillation-continue sotalol, has been restarted by cardiology. Noted to be on chronic anti-correlation with Coumadin, currently held in anticipation of possible left heart catheterization.
--- NOTE | 2016-11-10 14:02 | Pre-Sedation Evaluation ---
Pre-sedation evaluation - Pre-sedation checklist Date of procedure: 11/10/16 Procedure: [facility] Recent Vitals: Last Vital Signs Temp 97.8 F 11/10/16 11:15 Pulse 58 11/10/16 13:41 Resp 18 11/10/16 11:15 BP 119/75 11/10/16 13:41 Pulse Ox 98 11/10/16 04:23 H&P (including ROS) documented in medical record: Yes Previous reaction to sedatives/anesthetics: No Dietary Status: NPO after Midnight Airway Assessment: Patient can open mouth completely, TMJ function normal ASA Classification *see protocol: CLASS II-Mild systemic disease Plan of Care: Pt appropriate candidate for procedure/moderate/conscious sedation , Risks/benefits of procedure/sedation discussed w/ patient/family
--- NOTE | 2016-11-10 14:13 | Electrocardiograph Report ---
[place] [address] Test Date: 2016-11-10 Pat Name: Iliana Beaver Department: 112 Room: 2A44 Gender: F Packing Tractor Machine Operator: MARIO ALBERTO : 1950 Requested By: Roman Sanchez Order Number: [id number] Reading MD: Tee Hoffmann MD Measurements Intervals [place] Rate: 58 P: 22 IA: 164 QRS: 1 QRSD: 98 T: 88 QT: 434 QTc: 431 Interpretive Statements SINUS BRADYCARDIA Electronically Signed On 11-10-2016 14:12:08 EDT by Tee Hoffmann MD
[2016-11-10] MEDS ORDERED: Aminoglycoside Consult 1 EACH MC ONE (14:18)
--- NOTE | 2016-11-10 15:13 | Event Note ---
Date of Encounter: 11/10/16 Time of Encounter: 15:00 - Cardiology Event Note Family at bedside (POA). They confirm no CVA since 04/2016. Patient with CP 11/06 , NTG gtt titrated. Trops 0.17, and now 6.97. Per discussion with Dr. Hoffmann, check trop stat. If still upward trending, cath today. Will repeat INR as well.
[2016-11-10 15:53] LABS: INR 2.3; Prothrombin Time 24.9 Seconds (9.4-12.1)
[2016-11-10] MEDS: Nitrofurantoin (BID) 100 MG CAPSULE PO SCH (16:32)
[2016-11-10] MEDS ORDERED: Warfarin perPT PO PRN (18:00)
[2016-11-10] MEDS: Nitroglycerin 25 MG/250 ML INFUS..BTL IVC SCH (21:40)
[2016-11-10] MEDS: lamoTRIgine 100 MG TABLET PO SCH (21:41)
[2016-11-10] MEDS: Insulin DETEMIR 100 UNIT/ML X5UNITS SQ SCH (21:43)
[2016-11-11 05:08] LABS: INR 2.1; Prothrombin Time 23.2 Seconds (9.4-12.1)
[2016-11-11 05:12] LABS: Basophils # 0.1 K/mcL (0.0-0.2); Basophils % 0.7 %; Eosinophils # 0.3 K/mcL (0.0-0.6); Eosinophils % 3.3 %; Hematocrit 32.5 % (35.3-44.9); Hemoglobin 10.4 g/dL (11.5-15.4); Immature Granulocytes % 0.3 % (0-4); Lymphocytes # 2.1 K/mcL (0.6-4.6); Lymphocytes % 27.3 %; Mean Corpuscular Hemoglobin 28.8 pg (28.0-33.3); Mean Platelet Volume 10.3 fL (9.4-12.4); Monocytes # 0.7 K/mcL (0.0-1.3); Monocytes % 9.7 %; Neutrophils # 4.4 K/mcL (1.6-8.9); Platelet Count 181 K/mcL (140-400); Red Blood Count 3.61 M/mcL (3.82-4.97); Red Cell Distribution Width 13.2 % (11.5-14.5); Segmented Neutrophils % 58.7 %
[2016-11-11 05:22] LABS: BUN/Creatinine Ratio 41 (6-26); Blood Urea Nitrogen 32 mg/dL (7-20); Calcium 8.9 mg/dL (8.6-10.8); Carbon Dioxide 35 mEq/L (19-29); Chloride 100 mEq/L (98-109); Glucose 144 mg/dL (70-99); Osmolality,Calculated 299 (280-300); Potassium 4.5 mEq/L (3.5-4.5); Sodium 140 mEq/L (136-145); eGFR For African Americans > 60 (> 60); eGFR For Non-African Americans > 60 (> 60)
[2016-11-11] MEDS: Nitrofurantoin (BID) 100 MG CAPSULE PO SCH ×2 (08:16→15:53)
[2016-11-11] MEDS: Aspirin 81 MG TAB.CHEW PO SCH (08:16)
[2016-11-11] MEDS: Pregabalin 50 MG CAPSULE PO SCH ×3 (08:16→21:52)
[2016-11-11] MEDS: Insulin LISPRO 300 UNITS/3 ML VIAL SQ SCH ×4 (08:17→22:52)
[2016-11-11] MEDS: Fluticasone Propionate Nasal 50 MCG/SPRAY BOTTLE NS SCH (08:18)
[2016-11-11] MEDS: Cholecalciferol (D-3) 1,000 UNIT TABLET PO SCH (08:20)
[2016-11-11] MEDS: *HR* Morphine 2 MG/ML SYRINGE IVP PRN ×2 (08:21→14:26)
[2016-11-11] MEDS ORDERED: 0.9 % Sodium Chloride 500 ML ONE (08:24)
[2016-11-11] MEDS ORDERED: *HR* Phytonadione 5 MG TABLET PO ONE (08:51)
--- NOTE | 2016-11-11 10:08 | Event Note ---
Date of Encounter: 11/11/16 Time of Encounter: 09:00 - Cardiology Event Note Laboratory Tests 11/11/16 04:16 INR 2.1 Patient continues to have chest pain 6 out of 10 that has been continuous. Remains on nitroglycerin drip. Comfortable in bed. Patient sleeping upon arrival. EF remains preserved at 50-55%, no signal wall motion abnormalities. Discussed and reviewed with Dr. Hoffmann, will give vitamin K 2.5 mg by mouth 1 now with plans for left heart catheterization this afternoon. All ?'s answered. Further recommendations after catheterization.
[2016-11-11] MEDS ORDERED: *HR* Midazolam HCl 2 MG/2 ML VIAL ONE (12:19)
[2016-11-11] MEDS ORDERED: Verapamil 5 MG/2 ML VIAL ONE (12:20)
[2016-11-11] MEDS ORDERED: *HR* FentaNYL (PF) 100 MCG/2 ML VIAL ONE (12:20)
[2016-11-11] MEDS ORDERED: Nitroglycerin 1,000 MCG/10 ML VIAL IV ONE (12:21)
[2016-11-11] MEDS ORDERED: Heparin 1,000 UNITS/500 mL NS 500 ML ONE (12:21)
[2016-11-11] MEDS ORDERED: 0.9 % Sodium Chloride 1,000 ML ONE (12:21)
[2016-11-11] MEDS ORDERED: *HR* Heparin 10,000 UNIT/10 ML VIAL ONE (12:21)
[2016-11-11 13:42] LABS: INR 2.1; Prothrombin Time 23.3 Seconds (9.4-12.1)
--- NOTE | 2016-11-11 14:03 | Invasive Diagnostic Lab Proc ---
Name: Iliana Beaver Date of Study: 11/11/2016 Date: 1950 Ht: 64.2in Medical Record#: [id number] Age: 66 Wt: 202.83lb Gender: Female BSA: 1.97 Order #: [id number] BMI: 34.63 Physicians Procedure Physician: Tee Hoffmann MD, [facility] Referring MD: Pedro Luis Whitfield MD Referring MD: Staff Name Position Time In Carl Whitfield RN Monitor 01:08 PM Cher Steel RT (R) Scrub 01:08 PM Opal Judd RN Healthcare Interpreter 01:08 PM Indications Indication Non-Stemi Procedures Performed Procedure L HRT ARTERY/VENTRICLE ANGIO Pre-Procedure Checklist Informed consent is complete signed and on chart. H\\T\\P is on chart. ID band is on and ID verified with patient. Patient NPO for procedure The procedure was described for the patient and questions were answered. Blood Pressure: 135/71 ECG is on chart. Rhythm: NSR Plan of Care Patient will tolerate the procedure without complications. Adequate level of comfort will be maintained. Hemodynamics will remain stable Patient will recover from procedure without complications. Respiratory function will be maintained. Cardiac rhythm will remain stable. Patient temperature will be maintained. Patient and/or family have verbalized understanding of the procedure. Patient Education Chief Complaint/Reason for Test: Cardiac Cath Developmental Category: Geriatric (65+ years) Developmentally Appropriate for Age: Yes Learning Barriers: None Education Needs: Procedure Education Method: Verbal Information Taught: Cardiac Cath Educational Evaluation: Able to repeat information Intravenous Access Time IV Size Location DC'd Fluid/Drip Rate Units RN 12:31 PM 20g 1 06/02" Patent On Arrival Lt Wrist 0.9NaCl 25 ml/hr Opal Judd RN Allergies Penicillin Ampicillin sulfa Cephalosporin venom-honey bee Vital Signs Time BP (mmHg) HR (bpm) O2 Sat. RR (bpm) LOC 12:34 PM 135 / 71 60 98 % 16 5 = Fully awake and oriented or at pre-proc level 01:09 PM / % 5 = Fully awake and oriented or at pre-proc level 01:21 PM / % 4 = Oriented but drowsy 01:21 PM / % 3 = Answers simple questions/follows commands 01:09 PM 180 / 88 68 97 % 12 01:14 PM 186 / 89 66 97 % 12 01:19 PM 184 / 92 66 98 % 11 01:24 PM 169 / 73 69 86 % 7 01:29 PM 137 / 63 65 95 % 26 01:34 PM 146 / 69 68 99 % 15 01:39 PM 171 / 81 71 99 % 26 01:44 PM 178 / 83 70 99 % 15 01:36 PM / % 4 = Oriented but drowsy Procedural Medications Time Medication Dose Units Method Given By 01:09 PM Oxygen 2 L/min nasal cannula Opal Judd RN 01:09 PM Nitroglycerin 25 mcg/min Intravenous 2A RN (gtt continued from floor) 01:15 PM Versed 2 mg Intravenous Opal Judd RN 01:15 PM Fentanyl 25 mcg Intravenous Opal Judd RN 01:23 PM Oxygen 4 L/min nasal cannula Opal Judd RN 01:23 PM Lidocaine 2% 1 ml Subcutaneous Tee Hoffmann MD, FACC 01:33 PM Oxygen 6 L/min Oxy Mask Opal Judd RN ASA Classification: CLASS II- Mild systemic disease (i.e. well-controlled diabetes, hypertension, asthma, cigarette smoking) Alisa Score Preprocedure Postprocedure Activity 2- Moves 4 extremities sustained head lift Activity Circulation 2- SBP +/= 20 points of pre-anesthetic level Circulation Consciousness 2- Awake and alert oriented x 3 Consciousness O2 Saturation 2- Able to maintain O2 satruation of 92% on room air O2 Saturation Respiratory 2- Able to deep breathe and cough well Respiratory Total Score 10 Total Score Contrast Agent: Isovue Diagnostic Contrast: 84 ml Total Contrast: 84 ml Fluoro Dose: 400 mGy Procedure Log Time Note Enter By 12:19 PM CathStat 01:08 PM Case Start 01:08 PM Vitals capture started with the following parameters, Patient=Adult, Interval=5 min, Initial Hwialnll=158 mmHg, Deflation Rate=5 mmHg, Cuff placed on Right Arm 01:08 PM Pt arrived to lab clerk 2 at 13:08 csmith 01:08 PM Carl Whitfield RN Position: Monitor Time in: 13:08 csmith 01:08 PM Cher Steel RT (R) Position: Scrub Time in: 13:08 csmith 01:08 PM Opal Judd RN Position: Healthcare Interpreter Time in: 13:08 csmith 01:08 PM Patient charges- Angio tray pack, Navilyst 3mm J, Pulse Oximetry and ACIST tubing and transducer csmith 01:09 PM Hair removed from procedure site in procedure lab using clippers. Right wrist prepped with Chloraprep by Cher Steel ([place]), safety strap applied then patient was draped. Skin intact. csmith 01: PM Physician arrived 13:09 csmith : PM ASA Class CLASS II- Mild systemic disease (i.e. well-controlled diabetes, hypertension, asthma, cigarette smoking) csmith : PM Meet and greet completed csmith : PM Sign in performed according to hospital policy. csmith 01: PM Procedure start 13: csmith : PM Time: 13:09 Oxygen on at 2 L/min per nasal cannula by Opal Judd RN csmith : PM Time: 13:09 Nitroglycerin 25 mcg/min Intravenous Given by 2A RN (gtt continued from floor) Collins pump csmith : PM HR=68 bpm, TKBB=276/88 mmhg, SpO2=97.0 %, Resp=12 B/min, Comment=nsr : PM Time: 13:09 Patient comfortable and pain free: Yes csmith : PM Time: 13:09LOC: 5 = Fully awake and oriented or at pre-proc level csmith 01:10 PM Recorded ECG: HR=68 Condition=Condition 1 01:14 PM HR=66 bpm, SHFS=088/89 mmhg, SpO2=97.0 %, Resp=12 B/min, Comment=nsr 01:15 PM Time: 13:15 Versed 2 mg Intravenous Given by Opal Judd RN csmith :15 PM Time: 13:15 Fentanyl 25 mcg Intravenous Given by Opal Judd RN csmith 01:19 PM HR=66 bpm, REKQ=016/92 mmhg, SpO2=98.0 %, Resp=11 B/min, Comment=nsr 01:21 PM Time: 13:21 Patient comfortable and pain free: Yes csmith : PM Time: 13:21LOC: 4 = Oriented but drowsy csmith 01: PM Time out performed according to hospital policy csmith : PM Time: 13:23 Oxygen on at 4 L/min per nasal cannula by Opal Judd RN csmith 01:24 PM HR=69 bpm, DNQY=955/73 mmhg, SpO2=86.0 %, Resp=7 B/min, Comment=nsr 01:25 PM Time: 13:23 1 ml Lidocaine 2% to right radial Subcutaneous Given by Tee Hoffmann MD, [facility] csmith 01:25 PM Access obtained by percutaneous puncture. 5/6Fr 10cm Terumo Glidesheath sheath placed in right Radial artery. [id number] csmith 01:26 PM 5Fr TIG catheter inserted over the wire [facility] csmith 01:27 PM 0.035 260cm Navilyst 3mmJ wire [id number] csmith 01:27 PM Pressure channel 1 zero failed. 01:27 PM Pressure channel 1 zero failed. 01:27 PM Pressure channel 1 zero failed. 01:27 PM Pressure channel 1 zero failed. 01:29 PM Catheter selectively placed in left ventricle csmith 01:29 PM Bolus angiogram of left Ventricle complete: 10 ml/sec for a total of 20 mls csmith 01:29 PM Pressure channel 1 zero failed. 01:29 PM HR=65 bpm, WEQS=130/63 mmhg, SpO2=95.0 %, Resp=26 B/min, Comment=nsr 01:29 PM Recorded Pressure: LV, HR=?, Condition=Condition 1 (Left Ventricle) LV 125/4/10* 01:29 PM Recorded Pressure: LV, Ao, HR=77, Condition=Condition 1 (Left Ventricle) LV 125/4/10, (Aorta) Ao 108/44/70 01:30 PM Time: 13:30 Oxygen on at 6 L/min per Oxy Mask by Opal Judd RN csmith 01:32 PM catheter removed csmith 01:32 PM 5Fr FL 3.5 catheter inserted over the wire [id number] csmith 01:33 PM LCA angiography performed in multiple views. csmith 01:34 PM HR=68 bpm, EFVW=949/69 mmhg, SpO2=99.0 %, Resp=15 B/min, Comment=nsr 01:35 PM Catheter removed csmith 01:35 PM 5Fr 3DRC catheter inserted over the wire [id number] csmith 01:36 PM Time: 13:21 Patient comfortable and pain free: Yes csmith 01:36 PM Time: 13:21LOC: 3 = Answers simple questions/follows commands csmith 01:37 PM Lesion found in Proximal LAD. Pre Stenosis: 70 Pre MIGUE Flow: 3: Complete and Brisk Flow/Perfusion csmith 01:37 PM Lesion found in Proximal Circumflex. Pre Stenosis: 70 Pre MIGUE Flow: 3: Complete and Brisk Flow/Perfusion csmith 01:37 PM Coronary Dominance: right csmith 01:38 PM Catheter removed csmith 01:38 PM 5Fr AR1 catheter inserted over the wire [id number] csmith 01:39 PM RCA angiography performed in multiple views. csmith 01:39 PM HR=71 bpm, EVLU=831/81 mmhg, SpO2=99.0 %, Resp=26 B/min, Comment=nsr 01:40 PM Lesion found in Proximal RCA. Pre Stenosis: 70 Pre MIGUE Flow: 3: Complete and Brisk Flow/Perfusion csmith 01:41 PM Lesion found in Mid LAD. Pre Stenosis: 70 Pre MIGUE Flow: 3: Complete and Brisk Flow/Perfusion csmith 01:41 PM Lesion found in Distal LAD. Pre Stenosis: 80 Pre MIGUE Flow: 3: Complete and Brisk Flow/Perfusion csmith 01:43 PM Catheter removed csmith 01:43 PM Wire removed csmith 01:43 PM Procedure completed at 13:43 csmith 01:44 PM Sign out completed: Radiation Dose 400 mGy Fluoro Time: 4.5 Isovue 370 - 200ml contrast 84 ml given by Tee Hoffmann MD, [facility]. Complications: NoneCardiac Rehab Consult needed: YesConfirmed administered medications: Yes csmith 01:44 PM Isovue 370 - 200ml,1 Bottle(s) used. csmith 01:44 PM Arterial sheath pulled, Vasc Band closure device used and was Successful S/N. csmith 01:44 PM Post ECG NSR csmith 01:44 PM Post Blood Pressure 171/81 csmith 01:44 PM HR=70 bpm, GTBO=334/83 mmhg, SpO2=99.0 %, Resp=15 B/min, Comment=nsr 01:45 PM 13:44 Post Pulses Right radial 1+ csmith 01:45 PM Information taught Cardiac Cath csmith 01:45 PM Education needs Responsibilities of Patient in Care csmith 01:46 PM Learning barriers :Sedated csmith 01:46 PM Education Methods Verbal csmith 01:46 PM Education evaluation Able to repeat information csmith 01:46 PM Site status No bleeding/hematoma - Rt Wrist as reported by Damián, Cher RT (R) at 13:46 csmith 01:46 PM Plavix, Effient or Brilinta given No csmith 01:46 PM Family placed in consult room. csmith 01:[address] Campos notified of consult csmith 01:51 PM Time: 13:36 Patient comfortable and pain free: Yes csmith 01:51 PM Time: 13:36LOC: 4 = Oriented but drowsy csmith 01:52 PM 15 ml air in Vasc Band. csmith 01:57 PM Report given to 2A RN Pt taken to 2A Room #44. 13:57 csmith Complications Complication None Hemodynamics Pressures Site Systolic/A Wave Diastolic/V Wave Mean LV 125 4 10 LV 125 4 10 AO 108 44 70 Post Procedure Information Blood Pressure: 171/81 mmHg Rhythm: NSR Post procedural instructions were given Surgery consult for CABG Closure Device Time Device Success/Fail Mechanical Compression Successful Site Checks Time Location Status Staff Sheath In? Note 01:46 PM Rt Wrist No bleeding/hematoma Cher Steel RT (R) Pulses Time Site Pre-Procedure Post-Procedure Note 11/11/2016 12:34:00 PM Bilateral DP \\T\\ PT 1+ 11/11/2016 12:34:00 PM Bilateral radial 2+ 1:44:00 PM Right radial 1+ Updated by Carl Whitfield RN on 11/11/2016 1:58:10 PM electronically signed on 11/11/2016 1:58:44 PM with status of Final
--- NOTE | 2016-11-11 14:23 | Invasive Diagnostic Lab ---
Name: Iliana Beaver Date of Study: 11/11/2016 Date: 1950 Ht: 163.0 cm /64.2 in Medical Record#: [id number] Age: 66 Wt: 92. kg / 202.83 lb Account/Order#: [id number] Gender: Female BSA: 1.97 Order #: [id number] Fluoro Dose: 400 mGy BMI: 34.63 Procedure Physician: Tee Hoffmann MD, [facility] Referring MD: Pedro Luis Whitfield MD Referring MD: Procedures Performed: Transradial LEFT HEART CATH Indications: Non-Stemi Impressions: There is s three vessel coronary artery disease. The left ventricle is normal and has normal contractility EF 65% Diabetic coronary disease. Culprit for LA is likely distal LAD stenosis Atrial fibrillation on Coumadin with INR 2.1 with history of CVA Recommendations: Optimal medical therapy of patient's disease. Aggressive risk factor modification. Consult CT surgery to evaluate if candidate for CABG. History/Risk Factors: afib chf cad CVA DM GERD HLD HPTN PE Renal dx Procedure Access obtained in the right Radial artery by percutaneous puncture Complications: None Contrast: Isovue 84ml Closure Device: Mechanical Compression Hemodynamics: Pressures Site Systolic/ A Wave Diastolic/ V Wave End Diastolic/ Mean HR LV 125 4 10 0 LV 125 4 10 80 AO 108 44 70 68 LV Ventriculography Ejection Method: LV Gram Ejection Fraction: 65% Wall Motion: BAILEY Anterobasal Normal Anterolateral Normal Apical: Normal Inferoapical Normal Inferobasal Normal Coronary Dominance: right Lesion Findings/Interventions * Left Main Coronary Artery The LMCA is angiographically free of disease. * Left Anterior Descending There is a 70-80% stenosis in the Proximal LAD. The lesion has a MIGUE flow of 3. There is a long 60% stenosis in the Mid LAD, instent restenosis. The lesion has a MIGUE flow of 3. There is a 80-90% stenosis in the Distal LAD where it is a small caliber vessel. The lesion has a MIGUE flow of 3. * Circumflex There is a 70% stenosis in the Proximal Circumflex. The lesion has a MIGUE flow of 3. * Right Coronary Artery There is a 70% stenosis in the Proximal RCA. The lesion has a MIGUE flow of 3. Updated by Carl Whitfield RN on 11/11/2016 1:57:48 PM Tee Hoffmann MD, FACC electronically signed on 11/11/2016 2:17:26 PM with status of Final
--- NOTE | 2016-11-11 14:49 | Cardiothoracic Consult Note ---
Date of Encounter: 11/11/16 Time of Encounter: 14:46 Assessment and Plan (1) CAD (coronary artery disease) Current Visit: No Status: Chronic The assessment and plan as outlined above was discussed with the patient and/or family members who expressed understanding and agreement. All questions were answered. The patient has triple-vessel disease with preserved left ventricular function. She does have bypassable vessels. However, she resides in a correction and is wheelchair bound. She has a dense left hemiplegia. I favor medical therapy and or coronary artery stenting. Both of these are high risk. If surgery is felt to be the only option, I would favor transfer to [place]. Qualifiers: Coronary Disease-Associated Artery/Lesion type: [place] artery [place] vs. transplanted heart: [place] heart Associated angina: angina presence unspecified Qualified Code(s): I25.10 - Atherosclerotic heart disease of [place] coronary artery without angina pectoris - History of Present Illness History of present illness: Ms. Beaver is a 66 year old female History of present illness. Patient is a 66-year-old female who had a large stroke in April 2016. This has resulted in a left hemiplegia. She is wheelchair bound and resides in a correction. She presented with chest pain and a troponin to 6.97. She has had cardiac stents in the past. Cardiac catheterization done today revealed preserved left ventricular function. She has an 80% LAD lesion. A 70% circumflex lesion. A 70% right coronary artery lesion. She does have chronic A. fib and has been on Coumadin for this. INR is presently 2.1. Limited echocardiogram done on this admission reveals preserved left and right ventricular function. Previous echocardiogram revealed no valvular disease. Past medical history is notable for diabetes on insulin, anxiety, bipolar disease and depression. She also has history of congestive heart failure and chronic atrial fibrillation. Medications include Coumadin at home. Social history. She resides in a correction and is wheelchair bound. Does not smoke. Does not drink. Family history is positive for heart disease. Review of systems is otherwise negative. Past Med Surg Social Fam HX - Past Medical History Medical history: atrial fibrillation, CHF, coronary artery disease, CVA, diabetes, GERD, glaucoma, hyperlipidemia, hypertension, pulmonary embolus, renal disease Psychiatric history: anxiety, bipolar, depression - Past Surgical History Surgical History: angioplasty/stent, cholecystectomy, herniorrhaphy, hysterectomy, knee replacement - Social History Smoking Status: Never smoker Smokeless Tobacco Status: No Alcohol use: none Drug use: none - Family History Mother Family Member Ethnicity: Non- Living Status: Hx Family Cardiac Disorders: Yes Hx Family Respiratory Disorders: Yes (COPD) Hx Family Neurologic Disorders: Yes Father Adopted: [place]: Abhinav Harris Family Member Ethnicity: Non- Living Status: Age at : 81 Cause of : heart attack Hx Family Cardiac Disorders: Yes Hx Family Respiratory Disorders: No Hx Family Cancer: No Hx Family GI Disorders: No Hx Family Endocrine Disorder: No Hx Family Neuromuscular Disorders: No Hx Family Neurologic Disorders: No Hx Family HEENT Disorders: No Hx Family Autoimmune Disorders: No Hx Family Reproductive Disorders: No Medications and Allergies Pregabalin [Lyrica] 50 mg PO TID 09/29/15 [History] Fluticasone Propionate Nasal [Flonase] 50 mcg NS DAILY bottle 07/05/16 [Rx] Lactulose 30 gm PO DAILY udc 07/05/16 [Rx] MOM Conc [MILK OF MAGNESIA conc] 15 ml PO Q48H ud.liq 07/05/16 [Rx] Ondansetron ODT [Zofran ODT] 4 mg SL Q4HR PRN #0 tab.rapdis 07/05/16 [Rx] Sennosides/Docusate Sodium [Senna Plus] 1 each PO DAILY tablet 07/05/16 [Rx] Sotalol [Betapace] 80 mg PO Q12HR tablet 07/05/16 [Rx] Terazosin [Hytrin] 10 mg PO HS capsule 07/05/16 [Rx] lamoTRIgine [Lamictal] 100 mg PO HS tablet 07/05/16 [Rx] ALPRAZolam [Xanax 0.5 MG Tablet] 0.5 mg PO BID PRN 11/09/16 [History] Acetaminophen [Tylenol] 500 mg PO TID PRN 11/09/16 [History] Atorvastatin Calcium [Lipitor] 20 mg PO HS 11/09/16 [History] Cholecalciferol (D-3) [Vitamin D] 3,000 unit PO DAILY 11/09/16 [History] Collagenase Oint [Santyl] 1 appl TP BID 11/09/16 [History] DULoxetine [Cymbalta] 20 mg PO DAILY 11/09/16 [History] Insulin Glargine,Hum.rec.anlog [Lantus Solostar] 40 unit SQ HS 11/09/16 [History ] Omeprazole [PriLOSEC] 20 mg PO DAILY 11/09/16 [History] Oxymetazoline [Afrin] 2 spray NS Q12HR PRN 11/09/16 [History] Paliperidone Palmitate [Invega Sustenna] 156 mg IM QMONTH 11/09/16 [History] Simethicone [Bicarsim] 80 mg PO ACHS 11/09/16 [History] Simethicone [Gas-X] 80 mg PO Q4H PRN 11/09/16 [History] Warfarin perPT [Coumadin perPT] 7 mg PO DAILY 11/09/16 [History] Allergies cephalexin [From Keflex] Allergy (Verified 03/27/16 16:22) Hives Penicillins Allergy (Verified 03/27/16 16:22) Hives venom-honey bee [bee venom (honey bee)] Allergy (Verified 03/27/16 16:22) Anaphylaxis All Systems Review: A 10-system review of systems was performed and is negative for pertinent findings except as documented above in the HPI. Physical Examination Vital Signs, Last 4 Hours Temp Pulse Resp BP Pulse Ox 11/11/16 11:17 99.1 F 66 14 164/76 96 Pupils are equal, round and reactive to light and accommodation. No oral lesions. Neck is supple. Trachea in the midline. No thyromegaly or carotid bruits. Lungs are clear to percussion and auscultation. Heart is in an irregular rate and rhythm. No murmurs, gallops or rubs. Abdomen is benign. No tenderness, rebound or guarding. Extremities with 1-2+ pitting edema. No saphenous vein strippings. Neuro exam. She has a dense left hemiplegia. She is able to squeeze some with her left hand. She has almost no movement in her left leg. Results 11/11/16 04:16 11/11/16 04:16 Lab Results, Last 24 hours 11/10/16 11/10/16 11/11/16 15:22 15:22 04:16 WBC Hgb Hct Plt Count INR 2.3 2.1 Sodium Potassium Chloride Carbon Dioxide BUN Creatinine Glucose Calcium Troponin I 3.88 H* 11/11/16 11/11/16 11/11/16 04:16 04:16 13:28 WBC 7.5 Hgb 10.4 L D Hct 32.5 L Plt Count 181 INR 2.1 Sodium 140 Potassium 4.5 Chloride 100 Carbon Dioxide 35 H BUN 32 H Creatinine 0.78 Glucose 144 H Calcium 8.9 Troponin I Consult Discharge Plan - Plan Referrals: Pedro Luis Whitfield MD [Primary Care Provider] - 11/18/16 9:30 am (please follow up as schedule...)
--- NOTE | 2016-11-11 15:54 | Event Note ---
Date of Encounter: 11/11/16 Time of Encounter: 16:00 - Cardiology Event Note Patient was not deemed a good surgical candidate for CABG. Will evaluate tomorrow morning potential for repeat catheterization and stenting. Recommend transfer to higher level acuity floor for monitoring. Discussed with primary service. Discussed with family and all questions answered. Patient's daughter and power of entry level accountant is Toya Beaver with phone #[phone].
--- NOTE | 2016-11-11 16:30 | Internal Med Progress Note ---
Date of Encounter: 11/11/16 Time of Encounter: 15:30 - Assessment and plan (1) NSTEMI (non-ST elevated myocardial infarction) Current Visit: Yes Status: Acute Assessment and plan: Patient presented with chest pain and noted to have elevated troponin, with a maximum of 6.9, currently trending down. Continue telemetry monitoring, aspirin , beta saman and statin. Cardiology on board. Patient underwent left heart catheterization today and noted to have significant three-vessel disease and recommended possible bypass surgery. Patient was evaluated by cardiothoracic surgery and recommend high risk PCI versus medical management as patient is a poor surgical candidate with underlying dementia, poor baseline functional status, shelter candidate with left hemiplegia/bedbound status, previous CVA. Patient's INR continues to be elevated around 2.1, received 2.5 mg vitamin K today. Continues to have chest pain, on IV nitroglycerin drip. We will consider transferring patient to stepdown unit due to ongoing chest pain with no intervention/revascularization yet. (2) Chest pain Current Visit: Yes Status: Acute Assessment and plan: Patient's chest pain is probably due to ongoing myocardial ischemia. Continue IV nitroglycerin drip along with aspirin, statin and beta saman. When necessary IV morphine for severe pain. We will plan on transferring patient to stepdown unit for further care, pending PCI. Qualifiers: Chest pain type: chest pain due to myocardial ischemia Ischemic chest pain type: unstable angina pectoris Qualified Code(s): I20.0 - Unstable angina (3) DM type 2 (diabetes mellitus, type 2) Current Visit: Yes Status: Chronic Assessment and plan: Continue Accu-Chek blood glucose monitoring with basal bolus insulin regimen. Diabetic diet as tolerated. Qualifiers: Diabetes mellitus complication status: with unspecified complications Diabetes mellitus halfway insulin use: with manager intermediate use Qualified Code(s) : E11.8 - Type 2 diabetes mellitus with unspecified complications; Z79.4 - USP (current) use of insulin (4) Atrial fibrillation Current Visit: Yes Status: Chronic Assessment and plan: Currently rate controlled. INR noted to be 2.1. Coumadin is on hold for possible PCI tomorrow. Received low-dose vitamin K, continue to monitor INR closely. Qualifiers: Atrial fibrillation type: paroxysmal Qualified Code(s): I48.0 - Paroxysmal atrial fibrillation (5) Hyperlipidemia Current Visit: Yes Status: Chronic Qualifiers: Hyperlipidemia type: unspecified Qualified Code(s): E78.5 - Hyperlipidemia , unspecified (6) CAD (coronary artery disease) Current Visit: Yes Status: Chronic Qualifiers: Coronary Disease-Associated Artery/Lesion type: [place] artery [place] vs. transplanted heart: [place] heart Associated angina: with unstable angina Qualified Code(s): I25.110 - Atherosclerotic heart disease of [place] coronary artery with unstable angina pectoris (7) CVA (cerebral vascular accident) Current Visit: Yes Status: Chronic Assessment and plan: With residual left hemiplegia, sedentary. Requires higher level of nursing care. Frequent repositioning and fall precautions. Qualifiers: CVA mechanism: unspecified Qualified Code(s): I63.9 - Cerebral infarction, unspecified - Subjective Interval history: Return from catheter lab. Slightly drowsy but arousable. Continues to report at least moderate intensity retrosternal chest pain. No respiratory distress, vomiting, headache. - Constitutional Vitals: Temp Pulse Resp BP Pulse Ox 98.1 F 66 13 137/69 92 11/11/16 15:54 11/11/16 15:54 11/11/16 15:54 11/11/16 15:54 11/11/16 15:54 General appearance: Present: A&O X 2. Absent: answers questions appropriately - Respiratory Respiratory exam: Present: CTAB (Anterolaterally). Absent: accessory muscle use , rales, rhonchi, wheezes - Cardiovascular Cardiovascular exam: Present: RRR, +S1, +S2. Absent: diastolic murmur, gallop, rubs, systolic murmur - GI/Abdominal GI/Abdominal exam: Present: normal bowel sounds, soft, no peritoneal signs. Absent: distended, tenderness - Extremities Exam Extremities exam: Present: pedal edema, warm, radial pulses palpable and symetrical. Absent: calf tenderness, cyanotic Internal Medicine: Result - Labs CBC & Chem 7: 11/11/16 04:16 11/11/16 04:16 Labs: Short CBC 11/11/16 Range/Units 04:16 WBC 7.5 (4.3-11.1) K/mcL Hgb 10.4 L D (11.5-15.4) g/dL Hct 32.5 L (35.3-44.9) % Plt Count 181 (140-400) K/mcL Neutrophils # 4.4 (1.6-8.9) K/mcL BMP 11/11/16 04:16 Sodium 140 Potassium 4.5 Chloride 100 Carbon Dioxide 35 H BUN 32 H Creatinine 0.78 Glucose 144 H Calcium 8.9 - ABG Interpretation ABG results: PT/INR, D-dimer PT 23.3 Seconds (9.4-12.1) H 11/11/16 13:28 - VTE Reasons for not Prescribing Prophylaxis: Not indicated-Anticoagulated or INR therapeutic Consult Discharge Plan - Plan Referrals: Pedro Luis Whitfield MD [Primary Care Provider] - 11/18/16 9:30 am (please follow up as schedule...)
[2016-11-11] MEDS: lamoTRIgine 100 MG TABLET PO SCH (21:52)
[2016-11-11] MEDS: Insulin DETEMIR 100 UNIT/ML X5UNITS SQ SCH (22:50)
[2016-11-12 04:28] LABS: Basophils % 0.5 %; Eosinophils # 0.2 K/mcL (0.0-0.6); Eosinophils % 3.4 %; Hematocrit 31.4 % (35.3-44.9); Hemoglobin 10.1 g/dL (11.5-15.4); Immature Granulocytes % 0.5 % (0-4); Lymphocytes # 1.8 K/mcL (0.6-4.6); Lymphocytes % 27.9 %; Mean Corpuscular HGB Conc 32.2 g/dL (31.6-35.5); Mean Corpuscular Hemoglobin 29.2 pg (28.0-33.3); Mean Corpuscular Volume 90.8 fL (83.0-100.0); Mean Platelet Volume 9.7 fL (9.4-12.4); Monocytes # 0.8 K/mcL (0.0-1.3); Monocytes % 12.2 %; Neutrophils # 3.6 K/mcL (1.6-8.9); Platelet Count 153 K/mcL (140-400); Red Blood Count 3.46 M/mcL (3.82-4.97); Red Cell Distribution Width 13.2 % (11.5-14.5); Segmented Neutrophils % 55.5 %
[2016-11-12 04:40] LABS: BUN/Creatinine Ratio 37 (6-26); Blood Urea Nitrogen 30 mg/dL (7-20); Calcium 9.1 mg/dL (8.6-10.8); Carbon Dioxide 33 mEq/L (19-29); Chloride 101 mEq/L (98-109); Glucose 221 mg/dL (70-99); INR 1.5; Osmolality,Calculated 305 (280-300); Potassium 4.4 mEq/L (3.5-4.5); Prothrombin Time 16.8 Seconds (9.4-12.1); Sodium 141 mEq/L (136-145); eGFR For African Americans > 60 (> 60); eGFR For Non-African Americans > 60 (> 60)
[2016-11-12] MEDS: Nitroglycerin 25 MG/250 ML INFUS..BTL IVC SCH ×3 (08:08→21:39)
[2016-11-12] MEDS ORDERED: 0.9 % Sodium Chloride 500 ML ONE (08:20)
[2016-11-12] MEDS: Nitrofurantoin (BID) 100 MG CAPSULE PO SCH ×2 (08:52→17:31)
[2016-11-12] MEDS: Cholecalciferol (D-3) 1,000 UNIT TABLET PO SCH (08:52)
[2016-11-12] MEDS: Aspirin 81 MG TAB.CHEW PO SCH (08:52)
[2016-11-12] MEDS: Pregabalin 50 MG CAPSULE PO SCH ×3 (08:52→21:37)
[2016-11-12] MEDS: Fluticasone Propionate Nasal 50 MCG/SPRAY BOTTLE NS SCH (08:53)
[2016-11-12] MEDS: Insulin LISPRO 300 UNITS/3 ML VIAL SQ SCH ×4 (09:28→21:40)
--- NOTE | 2016-11-12 10:10 | Cardiology Progress Note ---
Date of Encounter: 11/12/16 Time of Encounter: 09:00 Assessment and Plan (1) NSTEMI (non-ST elevated myocardial infarction) Current Visit: Yes Status: Acute Per Cardiology: Peak troponin 6.97. CP continuous, but appears stable and apperas worse with palpation and improved with movement. Last echo 06/2015 with EF 60-65% and no significant valvular dysfunction. Current echo shows preserved EF 50-55% no SWMA. Underwent left heart catheterization with severe three-vessel CAD. Seen by CT surgery and deemed not a good surgical candidate. Cath films reviewed and discussed with Dr. Candy Lu with recs for medical management. We'll attempt to wean off IV nitroglycerin drip. We'll add long-acting nitrate and Ranexa. Increase statin. Continue to monitor symptoms. (2) CAD (coronary artery disease) Current Visit: Yes Status: Chronic Per Cardiology: Known history of CAD. Current catheterization showed proximal LAD 70-80%, mid LAD 60% in-stent restenosis, distal LAD 80-90% small caliber vessel, proximal circumflex 70%, and proximal RCA 70% stenosis. Qualifiers: Coronary Disease-Associated Artery/Lesion type: [place] artery [place] vs. transplanted heart: [place] heart Associated angina: with unstable angina Qualified Code(s): I25.110 - Atherosclerotic heart disease of [place] coronary artery with unstable angina pectoris (3) Atrial fibrillation Current Visit: Yes Status: Chronic Per Cardiology: History of SVT and paroxysmal atrial fibrillation. Remains sinus rhythm. On home dose of sotalol 80 mg by mouth every 12 hours. Qualifiers: Atrial fibrillation type: paroxysmal Qualified Code(s): I48.0 - Paroxysmal atrial fibrillation (4) Chronic anticoagulation Current Visit: Yes Status: Chronic Per Cardiology: On Coumadin for paroxysmal atrial defibrillation and had CVA April 2016 at [facility]. Current INR 1.5, will resume Coumadin with pharmacy to dose. (5) Hypertension Current Visit: Yes Status: Chronic Per Cardiology: Current systolic blood pressure is 170s to 180s. Adding lisinopril 5 mg by mouth daily. 2 to monitor blood pressure with addition of MARLENE inhibitor and long -acting nitrate. Monitor closely while weaning off nitro drip as well. Qualifiers: Hypertension type: essential hypertension Qualified Code(s): I10 - Essential (primary) hypertension Discussion w patient/family: The assessment and plan as outlined above was discussed with the patient and family who expressed understanding and agreement. All questions were answered. Thank you for involving us in the care of your patient. Please call with any questions. Subjective Principal diagnosis: NSTEMI Interval history: Patient reports midsternal CP slightly improved this am with position changes. Denies palps or SOB. Reports back pain. Objective Vital Signs, Last 4 Hours Temp Pulse Resp BP Pulse Ox 11/12/16 08:49 60 176/86 96 11/12/16 07:19 63 193/88 97 11/12/16 07:12 97.8 F 65 16 169/83 98 General: Conversant, No Apparent Distress HEENT: Atraumatic, Normocephaly, Mucus Membranes Moist Cardiac: Reg Rate and Rhythm, Normal S1 and S2, No Murmur Lungs: Normal Breath Sounds, No Wheeze, Rales, Rhonchi Neuro: Alert and responsive, Other (Left side flaccid) Abdomen: Soft, Non-Tender Skin: No rashes noted on visualized skin Musculoskeletal: Other (Chest tenderness slightly worse with palpation) Extremities: No Clubbing, No Cyanosis, No Edema, Normal Pulses Results 11/12/16 04:18 11/12/16 04:18 Lab Results Laboratory Tests 11/09/16 11/10/16 11/10/16 18:58 01:30 06:35 Creatinine Est GFR (Non-Af Amer) Troponin I 0.17 H* 6.76 H* 6.97 H* 11/10/16 11/12/16 15:22 04:18 Creatinine 0.81 Est GFR (Non-Af Amer) > 60 Troponin I 3.88 H* Active Medications Alprazolam (Xanax) 0.5 mg PO BID PRN; Protocol PRN Reason: Anxiety Stop: 05/12/17 05:51 Aspirin (Aspirin) 81 mg PO DAILY LAW Stop: 05/12/17 09:01 Last Admin: 11/12/16 08:52 Dose: 81 mg Atorvastatin Calcium (Lipitor) 80 mg PO HS LAW Stop: 05/14/17 21:01 Dextrose/Water (Dextrose 50% (Syg)) 25 ml IVP AD PRN PRN Reason: Hypoglycemia Stop: 05/12/17 00:42 Duloxetine HCl (Cymbalta) 20 mg PO DAILY LAW Stop: 05/12/17 09:01 Last Admin: 11/12/16 09:28 Dose: 20 mg Fluticasone Propionate (Flonase) 50 mcg NS DAILY LAW PRN Reason: Protocol Stop: 05/12/17 09:01 Last Admin: 11/12/16 08:53 Dose: Not Given Glucagon (Glucagen) 1 mg IM ONCE PRN PRN Reason: Hypoglycemia Stop: 05/12/17 00:42 Glucose (Gluctose) 15 gm PO ONCE PRN PRN Reason: Hypoglycemia Stop: 05/12/17 00:42 Glucose (Gluctose) 30 gm PO ONCE PRN PRN Reason: Hypoglycemia Stop: 05/12/17 00:42 Nitroglycerin (Nitroglycerin) 25 mg in 250 mls @ 3 mls/hr IVC .Q24H LAW; 5 MCG/ MIN PRN Reason: Protocol Stop: 05/11/17 21:31 Last Admin: 11/12/16 09:02 Dose: 25 mcg/min, 15 mls/hr Dextrose (Dextrose 5%) 1,000 mls @ 100 mls/hr IVC .Q10H PRN PRN Reason: HYPOGLYCEMIA Stop: 05/12/17 00:42 Insulin Detemir (Levemir) 40 unit SQ HS LAW Stop: 05/12/17 21:01 Last Admin: 11/11/16 22:50 Dose: 40 unit Insulin Human Lispro (Humalog) 0 units SQ HS LAW PRN Reason: Protocol Stop: 05/12/17 21:01 Last Admin: 11/11/16 22:52 Dose: Not Given Insulin Human Lispro (Humalog) 0 units SQ TIDAC LAW PRN Reason: Protocol Stop: 05/12/17 07:31 Last Admin: 11/12/16 09:28 Dose: 6 units Isosorbide Mononitrate (Imdur) 60 mg PO DAILY LAW Stop: 05/14/17 10:01 Lamotrigine (Lamictal) 100 mg PO HS LAW Stop: 05/12/17 21:01 Last Admin: 11/11/16 21:52 Dose: 100 mg Lisinopril (Zestril) 5 mg PO DAILY LAW PRN Reason: Protocol Stop: 05/14/17 10:01 Morphine Sulfate (Morphine Sulfate) 2 mg IVP Q2H PRN PRN Reason: Chest pain unresolved with NTG Stop: 05/12/17 00:41 Last Admin: 11/11/16 14:26 Dose: 2 mg Naloxone HCl (Narcan) 0.4 mg IVP Q2MIN PRN PRN Reason: Opioid Reversal Stop: 05/12/17 00:38 Nitrofurantoin Macrocrystals (Macrobid) 100 mg PO BIDWM LAW Stop: 05/12/17 17:01 Last Admin: 11/12/16 08:52 Dose: 100 mg Nitroglycerin (Nitroglycerin) 0.4 mg SL Q5MIN PRN PRN Reason: Chest Pain Stop: 05/11/17 19:53 Last Admin: 11/09/16 20:04 Dose: 0.4 mg Omeprazole (Prilosec) 20 mg PO DAILY LAW PRN Reason: Protocol Stop: 05/12/17 09:01 Last Admin: 11/12/16 08:52 Dose: 20 mg Pregabalin (Lyrica) 50 mg PO TID LAW Stop: 05/12/17 09:01 Last Admin: 11/12/16 08:52 Dose: 50 mg Ranolazine (Ranexa) 1,000 mg PO BID [facility] Stop: 05/14/17 10:01 Sotalol HCl (Betapace) 80 mg PO Q12H LAW Stop: 05/12/17 09:01 Last Admin: 11/12/16 08:52 Dose: 80 mg Terazosin HCl (Hytrin) 10 mg PO HS [facility] Stop: 05/12/17 21:01 Last Admin: 11/11/16 21:52 Dose: 10 mg Vitamin D (Vitamin D) 3,000 unit PO DAILY LAW Stop: 05/12/17 09:01 Last Admin: 11/12/16 08:52 Dose: 3,000 unit Warfarin Sodium (Coumadin Perpt) 1 each PO DAILY@1800 PRN PRN Reason: SEE COMMENTS Stop: 05/14/17 18:01 - Imaging and Cardiology Echo: report reviewed Cardiac cath: report reviewed - EKG Interpretation EKG results cardiology: other (SR on tele) - VTE Reasons for not Prescribing Prophylaxis: Not indicated-Anticoagulated or INR therapeutic Consult Discharge Plan - Plan Referrals: Monique Tubbs [employer]ADER [Advanced Practice Nurse] - 11/18/16 9:30 am
[2016-11-12] MEDS: Isosorbide MONOnitrate (24 HR) 60 MG TAB.ER.24H PO SCH (12:16)
[2016-11-12] MEDS: *HR* Enoxaparin 100 MG/ML SYRINGE SQ SCH ×2 (12:16→21:37)
[2016-11-12] MEDS: Ranolazine 500 MG TAB.ER.12H PO SCH ×2 (12:16→21:36)
[2016-11-12] MEDS ORDERED: Warfarin perPT PO PRN (18:00)
--- NOTE | 2016-11-12 18:05 | Internal Med Progress Note ---
Date of Encounter: 11/12/16 Time of Encounter: 14:00 - Assessment and plan (1) NSTEMI (non-ST elevated myocardial infarction) Current Visit: Yes Status: Acute Assessment and plan: Patient presented with chest pain and noted to have elevated troponin, with a maximum of 6.9, currently trending down. Continue telemetry monitoring, aspirin , beta saman and statin. Cardiology on board. Patient underwent left heart catheterization and noted to have significant three-vessel disease and recommended possible bypass surgery. Patient was evaluated by cardiothoracic surgery and recommend high risk PCI versus medical management as patient is a poor surgical candidate. Case was again reviewed by cardiology today and decided on medical management, heart catheter and PCI canceled for now. Patient has been started on Imdur and ranolazine and MARLENE inhibitor per cardiology recommendations. Goal to taper off IV nitroglycerin drip. Statin dose has been titrated up. (2) Chest pain Current Visit: Yes Status: Acute Qualifiers: Chest pain type: chest pain due to myocardial ischemia Ischemic chest pain type: unstable angina pectoris Qualified Code(s): I20.0 - Unstable angina (3) DM type 2 (diabetes mellitus, type 2) Current Visit: Yes Status: Chronic Assessment and plan: Continue Accu-Chek blood glucose monitoring with basal bolus insulin regimen. Diabetic diet as tolerated. 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 INR noted to be 1.5 after vitamin K. Restart Coumadin and start Lovenox for bridging. continue to monitor INR closely. Qualifiers: Atrial fibrillation type: paroxysmal Qualified Code(s): I48.0 - Paroxysmal atrial fibrillation (5) Hyperlipidemia Current Visit: Yes Status: Chronic Qualifiers: Hyperlipidemia type: unspecified Qualified Code(s): E78.5 - Hyperlipidemia , unspecified (6) CAD (coronary artery disease) Current Visit: Yes Status: Chronic Qualifiers: Coronary Disease-Associated Artery/Lesion type: [place] artery [place] vs. transplanted heart: [place] heart Associated angina: with unstable angina Qualified Code(s): I25.110 - Atherosclerotic heart disease of [place] coronary artery with unstable angina pectoris (7) CVA (cerebral vascular accident) Current Visit: Yes Status: Chronic Qualifiers: CVA mechanism: unspecified Qualified Code(s): I63.9 - Cerebral infarction, unspecified - Subjective Interval history: Continues to report at least moderate retrosternal chest pain although she is not noted to be in distress. No shortness of breath, orthopnea, nausea or dizziness. - Constitutional Vitals: Temp Pulse Resp BP Pulse Ox 97.8 F 70 18 136/60 97 11/12/16 16:37 11/12/16 16:37 11/12/16 16:37 11/12/16 16:37 11/12/16 16:37 General appearance: Present: A&O X 2. Absent: answers questions appropriately - Respiratory Respiratory exam: Present: CTAB (Anterolaterally). Absent: accessory muscle use , rales, rhonchi, wheezes - Cardiovascular Cardiovascular exam: Present: RRR, +S1, +S2, systolic murmur. Absent: diastolic murmur, gallop, rubs - GI/Abdominal GI/Abdominal exam: Present: normal bowel sounds, soft, no peritoneal signs. Absent: distended, tenderness - Extremities Exam Extremities exam: Present: warm, radial pulses palpable and symetrical. Absent : calf tenderness, cyanotic, pedal edema - Neurological Exam Neurological exam: Present: CN II-XII intact, oriented X3, no focal deficits ( Left-sided dense hemiplegia). Absent: pronater drift, facial droop, speech deficit Internal Medicine: Result - Labs CBC & Chem 7: 11/12/16 04:18 11/12/16 04:18 Labs: Short CBC 11/12/16 Range/Units 04:18 WBC 6.4 (4.3-11.1) K/mcL Hgb 10.1 L (11.5-15.4) g/dL Hct 31.4 L (35.3-44.9) % Plt Count 153 (140-400) K/mcL Neutrophils # 3.6 (1.6-8.9) K/mcL BMP 11/12/16 04:18 Sodium 141 Potassium 4.4 Chloride 101 Carbon Dioxide 33 H BUN 30 H Creatinine 0.81 Glucose 221 H Calcium 9.1 - ABG Interpretation ABG results: PT/INR, D-dimer PT 16.8 Seconds (9.4-12.1) H 11/12/16 04:18 - VTE Reasons for not Prescribing Prophylaxis: Not indicated-Anticoagulated or INR therapeutic Consult Discharge Plan - Plan Referrals: Monique Tubbs CNP [Advanced Practice Nurse] - 11/18/16 9:30 am
[2016-11-12] MEDS: lamoTRIgine 100 MG TABLET PO SCH (21:37)
[2016-11-12] MEDS: Insulin DETEMIR 100 UNIT/ML X5UNITS SQ SCH (21:38)
[2016-11-13 05:45] LABS: Basophils % 0.3 %; Eosinophils # 0.2 K/mcL (0.0-0.6); Eosinophils % 2.2 %; Hemoglobin 10.4 g/dL (11.5-15.4); Immature Granulocytes % 0.2 % (0-4); Lymphocytes # 1.7 K/mcL (0.6-4.6); Mean Corpuscular HGB Conc 32.5 g/dL (31.6-35.5); Mean Corpuscular Hemoglobin 29.3 pg (28.0-33.3); Mean Corpuscular Volume 90.1 fL (83.0-100.0); Mean Platelet Volume 10.6 fL (9.4-12.4); Monocytes # 0.8 K/mcL (0.0-1.3); Monocytes % 9.6 %; Neutrophils # 5.8 K/mcL (1.6-8.9); Platelet Count 159 K/mcL (140-400); Red Blood Count 3.55 M/mcL (3.82-4.97); Red Cell Distribution Width 13.3 % (11.5-14.5); Segmented Neutrophils % 67.7 %
[2016-11-13 05:48] LABS: INR 1.2; Prothrombin Time 13.5 Seconds (9.4-12.1)
[2016-11-13] MEDS: Insulin LISPRO 300 UNITS/3 ML VIAL SQ SCH ×2 (08:35→12:20)
[2016-11-13] MEDS: Pregabalin 50 MG CAPSULE PO SCH ×2 (08:47→15:50)
[2016-11-13] MEDS: Ranolazine 500 MG TAB.ER.12H PO SCH (08:47)
[2016-11-13] MEDS: Aspirin 81 MG TAB.CHEW PO SCH (08:47)
[2016-11-13] MEDS: Isosorbide MONOnitrate (24 HR) 60 MG TAB.ER.24H PO SCH (08:48)
[2016-11-13] MEDS: Cholecalciferol (D-3) 1,000 UNIT TABLET PO SCH (08:48)
[2016-11-13] MEDS: Nitrofurantoin (BID) 100 MG CAPSULE PO SCH (08:49)
[2016-11-13] MEDS: Fluticasone Propionate Nasal 50 MCG/SPRAY BOTTLE NS SCH (08:49)
[2016-11-13] MEDS: *HR* Enoxaparin 100 MG/ML SYRINGE SQ SCH (08:49)
[2016-11-13] MEDS ORDERED: Insulin DETEMIR 100 UNIT/ML X5UNITS SQ SCH (09:00)
[2016-11-13] MEDS ORDERED: Insulin DETEMIR 100 UNIT/ML X5UNITS SQ ONE (09:30)
[2016-11-13 09:58] VITALS: BP 124/69
--- NOTE | 2016-11-13 11:11 | Cardiology Progress Note ---
Date of Encounter: 11/13/16 Time of Encounter: 10:30 Assessment and Plan (1) NSTEMI (non-ST elevated myocardial infarction) Current Visit: Yes Status: Acute Per Cardiology: Peak troponin 6.97. CP continuous, but appears stable and apperas worse with palpation and improved with movement. Last echo 06/2015 with EF 60-65% and no significant valvular dysfunction. Current echo shows preserved EF 50-55% no SWMA. Underwent left heart catheterization with severe three-vessel CAD. Seen by CT surgery and deemed not a good surgical candidate. Cath films reviewed and discussed with Dr. Candy Lu with recs for medical management. Now off NTG gtt and chest pain free. Continue ranexa and imdur. Continue asa, statin, and bb. Close out-pt cardiology f/u. [facility] will coordinate. Patient is planning on returning to [facility]. Cardiology will sign off. Please call with questions. (2) CAD (coronary artery disease) Current Visit: Yes Status: Chronic Per Cardiology: Known history of CAD. Current catheterization showed proximal LAD 70-80%, mid LAD 60% in-stent restenosis, distal LAD 80-90% small caliber vessel, proximal circumflex 70%, and proximal RCA 70% stenosis. Qualifiers: Coronary Disease-Associated Artery/Lesion type: [place] artery [place] vs. transplanted heart: [place] heart Associated angina: with unstable angina Qualified Code(s): I25.110 - Atherosclerotic heart disease of [place] coronary artery with unstable angina pectoris (3) Atrial fibrillation Current Visit: Yes Status: Chronic Per Cardiology: History of SVT and paroxysmal atrial fibrillation. Remains sinus rhythm. On home dose of sotalol 80 mg by mouth every 12 hours. Qualifiers: Atrial fibrillation type: paroxysmal Qualified Code(s): I48.0 - Paroxysmal atrial fibrillation Discussion w patient/family: The assessment and plan as outlined above was discussed with the patient and/or family members who expressed understanding and agreement. All questions were answered. Thank you for involving us in the care of your patient. Please call with any questions. Subjective Principal diagnosis: NSTEMI Interval history: SHe is now chest pain free. Objective Vital Signs, Last 4 Hours Temp Pulse Resp BP Pulse Ox 11/13/16 07:20 98.2 F 69 16 124/69 97 General: Conversant, No Apparent Distress HEENT: Atraumatic, Normocephaly, Mucus Membranes Moist Neck: No JVD, Normal carotid pulses Cardiac: Reg Rate and Rhythm, Normal S1 and S2, No Murmur Lungs: Normal Breath Sounds, No Wheeze, Rales, Rhonchi Neuro: Alert and responsive, No focal deficits noted Abdomen: Soft, Non-Tender Skin: No rashes noted on visualized skin Musculoskeletal: No Chest Wall Tenderness Extremities: No Clubbing, No Cyanosis, No Edema, Normal Pulses Results 11/13/16 05:06 11/12/16 04:18 Lab Results 11/13/16 11/13/16 05:06 05:06 WBC 8.6 Hgb 10.4 L Hct 32.0 L Plt Count 159 INR 1.2 - Imaging and Cardiology Echo: report reviewed Cardiac cath: report reviewed - VTE Reasons for not Prescribing Prophylaxis: Not indicated-Anticoagulated or INR therapeutic Consult Discharge Plan - Plan Referrals: Monique Tubbs CNP [Advanced Practice Nurse] - 11/18/16 9:30 am
--- NOTE | 2016-11-13 13:54 | Discharge Summary ---
Date of Encounter: 11/13/16 Time of Encounter: 13:47 - Discharge Diagnosis (1) NSTEMI (non-ST elevated myocardial infarction) Priority: Primary Status: Acute (2) Chest pain Priority: Primary Status: Acute Qualifiers: Chest pain type: chest pain due to myocardial ischemia Ischemic chest pain type: unstable angina pectoris Qualified Code(s): I20.0 - Unstable angina (3) DM type 2 (diabetes mellitus, type 2) Priority: Secondary Status: Chronic Qualifiers: Diabetes mellitus complication status: with unspecified complications Diabetes mellitus terminal superintendent insulin use: with chcf use Qualified Code(s) : E11.8 - Type 2 diabetes mellitus with unspecified complications; Z79.4 - [facility] (current) use of insulin (4) Atrial fibrillation Priority: Secondary Status: Chronic Qualifiers: Atrial fibrillation type: paroxysmal Qualified Code(s): I48.0 - Paroxysmal atrial fibrillation (5) Hyperlipidemia Priority: Secondary Status: Chronic Qualifiers: Hyperlipidemia type: unspecified Qualified Code(s): E78.5 - Hyperlipidemia , unspecified (6) CAD (coronary artery disease) Priority: Secondary Status: Chronic Qualifiers: Coronary Disease-Associated Artery/Lesion type: [place] artery [place] vs. transplanted heart: [place] heart Associated angina: with unstable angina Qualified Code(s): I25.110 - Atherosclerotic heart disease of [place] coronary artery with unstable angina pectoris (7) CVA (cerebral vascular accident) Priority: Secondary Status: Chronic Qualifiers: CVA mechanism: unspecified Qualified Code(s): I63.9 - Cerebral infarction, unspecified - Discharge Medications Prescriptions: Nitroglycerin 0.4 mg SL Q5MIN PRN #30 tab.subl PRN Reason: Chest Pain Aspirin 81 mg PO DAILY #30 tab.chew Enoxaparin [Lovenox] 90 mg SQ BID 10 Days Isosorbide MONOnitrate (24 HR) [Imdur] 60 mg PO DAILY #30 tab.er.24h Lisinopril [Zestril] 5 mg PO DAILY #30 tablet Nitrofurantoin (BID) [Macrobid] 100 mg PO BIDWM #20 capsule Ranolazine [Ranexa] 1,000 mg PO BID #60 tab.er.12h Home Medications: Fluticasone Propionate Nasal [Flonase] 50 mcg NS DAILY bottle 07/05/16 [Rx] Lactulose 30 gm PO DAILY udc 02/06/17 [Rx] MOM Conc [MILK OF MAGNESIA conc] 15 ml PO Q48H ud.liq 07/05/16 [Rx] Ondansetron ODT [Zofran ODT] 4 mg SL Q4HR PRN #0 tab.rapdis 07/05/16 [Rx] Sennosides/Docusate Sodium [Senna Plus] 1 each PO DAILY tablet 07/05/16 [Rx] Sotalol [Betapace] 80 mg PO Q12HR tablet 07/05/16 [Rx] Terazosin [Hytrin] 10 mg PO HS capsule 07/05/16 [Rx] lamoTRIgine [Lamictal] 100 mg PO HS tablet 07/05/16 [Rx] Acetaminophen [Tylenol] 500 mg PO TID PRN 11/09/16 [History] Cholecalciferol (D-3) [Vitamin D] 3,000 unit PO DAILY 11/09/16 [History] Collagenase Oint [Santyl] 1 appl TP BID 11/09/16 [History] DULoxetine [Cymbalta] 20 mg PO DAILY 11/09/16 [History] Insulin Glargine,Hum.rec.anlog [Lantus Solostar] 40 unit SQ HS 11/09/16 [History ] Omeprazole [PriLOSEC] 20 mg PO DAILY 11/09/16 [History] Oxymetazoline [Afrin] 2 spray NS Q12HR PRN 11/09/16 [History] Paliperidone Palmitate [Invega Sustenna] 156 mg IM QMONTH 11/09/16 [History] Simethicone [Bicarsim] 80 mg PO ACHS 11/09/16 [History] Simethicone [Gas-X] 80 mg PO Q4H PRN 11/09/16 [History] Warfarin perPT [Coumadin perPT] 7 mg PO DAILY 11/09/16 [History] ALPRAZolam [Xanax 0.5 MG Tablet] 0.5 mg PO BID PRN #20 11/13/16 [Rx] Aspirin 81 mg PO DAILY #30 tab.chew 11/13/16 [Rx] Atorvastatin Calcium [Lipitor] 80 mg PO HS #0 11/13/16 [Rx] Enoxaparin [Lovenox] 90 mg SQ BID 10 Days 11/13/16 [Rx] Isosorbide MONOnitrate (24 HR) [Imdur] 60 mg PO DAILY #30 tab.er.24h 11/13/16 [ Rx] Lisinopril [Zestril] 5 mg PO DAILY #30 tablet 11/13/16 [Rx] Nitrofurantoin (BID) [Macrobid] 100 mg PO BIDWM #20 capsule 11/13/16 [Rx] Nitroglycerin 0.4 mg SL Q5MIN PRN #30 tab.subl 11/13/16 [Rx] Pregabalin [Lyrica] 50 mg PO TID #30 11/13/16 [Rx] Ranolazine [Ranexa] 1,000 mg PO BID #60 tab.er.12h 11/13/16 [Rx] Allergies/Adverse Reactions: Allergies cephalexin [From Keflex] Allergy (Verified 03/27/16 16:22) Hives Penicillins Allergy (Verified 03/27/16 16:22) Hives venom-honey bee [bee venom (honey bee)] Allergy (Verified 03/27/16 16:22) Anaphylaxis Procedures/tests Complete & Pending: Procedures Performed prior 72 hours Category Date Time Status CL Cardiac Catheterization [CL] Routine Heel Varnisher 11/11/16 13:00 Completed CL Cardiac Catheterization [CL] Routine Heel Varnisher 11/12/16 11:00 Ordered Date of admission: 11/10/16 00:37 Primary care physician: Pedro Luis Whitfield MD Consults: 11/10/16 11:16 Consult to Netbackup Engineer [CONS] Routine Reason for SW Consult: RTN TO [facility] 11/10/16 11:43 Consult to Cardiac Rehabilitation-Phase1 [CONS] Routine Comment: Reason for Consult: NSTEMI, supect poor candidate for phase 2-- residual L sided weakness from CVA, lives in [place] Call Completed: No 11/11/16 14:35 Consult to Cardiothoracic Surgery [CONS] Routine Consulting Provider: Cardiothoracic Surgery Priyanka Reason for Consult: cabg Call Completed: Yes 11/12/16 14:40 Consult to Occupational Therapy [CONS] Routine Comment: Evaluate, develop and implement POC Reason for Consult: patient would like to go home with POA and HH (from [facility]) Consult to Physical Therapy [CONS] Routine Comment: Evaluate, develop and implement POC Reason for Consult: patient would like to go home with POA and HH (from [facility]) Discharging clinician: Cynthia Singh Anticipated date of discharge: 11/13/16 - Patient Status Disposition: Transfer SNF Condition: Fair Functional capacity at discharge: bed bound Overall status at discharge: patient is progressing back to baseline - Discharge Instructions Follow Up With: Monique Tubbs CNP [Advanced Practice Nurse] - 11/18/16 9:30 am Brooks Multani CNP [Advanced Practice Nurse] - (OFFICE WILL CALL YOU WITH F/U APPOINTMENT) Additional Instructions: F/up with [facility] Cardiology in 1-2 weeks - Diet and Activity Activity: as per physical therapy, wear oxygen at all times Diet: diabetic diet, low fat, low cholesterol, low salt diet Hospital course: Ms. Beaver is a 66 year old female with multiple medical problems, who was sent from shelter for evaluation of retrosternal chest pain. Patient was noted to have elevated troponin and was started on non-ST elevation LA protocol with aspirin, beta saman, statin. She was noted to have therapeutic INR with chronic anticoagulation with Coumadin for atrial fibrillation. She continued to report ongoing chest pain and received IV nitroglycerin drip for at least 48 hours after admission. Cardiology was consulted and agreed with this management. Patient underwent left heart catheterization showing severe 3 vessel disease and initially recommended possible CABG. Patient was evaluated by cardiothoracic surgery and recommended medical management was as high risk PCI as patient is not a surgical candidate due to underlying poor functional status, dementia and left hemiplegia. Limited Echocardiogram shows 50-55% ejection fraction, mild concentric LVH. Heart catheter films were further reviewed by cardiology and recommended medical management at this time. Patient's chest pain gradually improved with the addition of ranolazine, isosorbide mononitrate, MARLENE inhibitor and increase in statin and she was able to be weaned off nitroglycerin drip. Patient was seen by physical therapy and recommended continued rehabilitation at extended care facility. She is medically stable for discharge with close outpatient cardiology follow-up at this time. - Time Spent with Patient Total time spent providing and/or coordinating discharge services: Greater than 30 minutes (50 min) - Constitutional Vitals: Temp Pulse Resp BP Pulse Ox 98.2 F 69 16 124/69 97 11/13/16 07:20 11/13/16 07:20 11/13/16 07:20 11/13/16 07:20 11/13/16 07:20 General appearance: Present: A&O X 2, answers questions appropriately - Respiratory Respiratory exam: Present: CTAB. Absent: accessory muscle use, rales, rhonchi, wheezes - Cardiovascular Cardiovascular exam: Present: RRR, +S1, +S2. Absent: diastolic murmur, gallop, rubs, systolic murmur - VTE Reasons for not Prescribing Prophylaxis: Not indicated-Anticoagulated or INR therapeutic
--- NOTE | 2016-11-13 14:00 | Physician Discharge Referral ---
ExtendedCare Referral Info Transfer To: [facility] Provider in Charge: yCnthia Singh Provider in Charge after Transfer: PCP Institutional Level of Care: Skilled - Diagnosis (1) NSTEMI (non-ST elevated myocardial infarction) Priority: Primary Status: Acute (2) Chest pain Priority: Primary Status: Acute (3) DM type 2 (diabetes mellitus, type 2) Priority: Secondary Status: Chronic (4) Atrial fibrillation Priority: Secondary Status: Chronic (5) Hyperlipidemia Priority: Secondary Status: Chronic (6) CAD (coronary artery disease) Priority: Secondary Status: Chronic (7) CVA (cerebral vascular accident) Priority: Secondary Status: Chronic Expected Duration of Placement: 3 weeks Prognosis: Fair Aware of Diagnosis: Patient Aware of Prognosis: Patient - Transfer Medications Prescriptions: Nitroglycerin 0.4 mg SL Q5MIN PRN #30 tab.subl PRN Reason: Chest Pain Aspirin 81 mg PO DAILY #30 tab.chew Enoxaparin [Lovenox] 90 mg SQ BID 10 Days Isosorbide MONOnitrate (24 HR) [Imdur] 60 mg PO DAILY #30 tab.er.24h Lisinopril [Zestril] 5 mg PO DAILY #30 tablet Nitrofurantoin (BID) [Macrobid] 100 mg PO BIDWM #20 capsule Ranolazine [Ranexa] 1,000 mg PO BID #60 tab.er.12h Home Medications: Pregabalin [Lyrica] 50 mg PO TID 09/29/15 [History] Fluticasone Propionate Nasal [Flonase] 50 mcg NS DAILY bottle 07/05/16 [Rx] Lactulose 30 gm PO DAILY udc 07/05/16 [Rx] MOM Conc [MILK OF MAGNESIA conc] 15 ml PO Q48H ud.liq 07/05/16 [Rx] Ondansetron ODT [Zofran ODT] 4 mg SL Q4HR PRN #0 tab.rapdis 07/05/16 [Rx] Sennosides/Docusate Sodium [Senna Plus] 1 each PO DAILY tablet 07/05/16 [Rx] Sotalol [Betapace] 80 mg PO Q12HR tablet 07/05/16 [Rx] Terazosin [Hytrin] 10 mg PO HS capsule 07/05/16 [Rx] lamoTRIgine [Lamictal] 100 mg PO HS tablet 07/05/16 [Rx] ALPRAZolam [Xanax 0.5 MG Tablet] 0.5 mg PO BID PRN 11/09/16 [History] Acetaminophen [Tylenol] 500 mg PO TID PRN 11/09/16 [History] Cholecalciferol (D-3) [Vitamin D] 3,000 unit PO DAILY 11/09/16 [History] Collagenase Oint [Santyl] 1 appl TP BID 11/09/16 [History] DULoxetine [Cymbalta] 20 mg PO DAILY 11/09/16 [History] Insulin Glargine,Hum.rec.anlog [Lantus Solostar] 40 unit SQ HS 11/09/16 [History ] Omeprazole [PriLOSEC] 20 mg PO DAILY 11/09/16 [History] Oxymetazoline [Afrin] 2 spray NS Q12HR PRN 11/09/16 [History] Paliperidone Palmitate [Invega Sustenna] 156 mg IM QMONTH 11/09/16 [History] Simethicone [Bicarsim] 80 mg PO ACHS 11/09/16 [History] Simethicone [Gas-X] 80 mg PO Q4H PRN 11/09/16 [History] Warfarin perPT [Coumadin perPT] 7 mg PO DAILY 11/09/16 [History] Aspirin 81 mg PO DAILY #30 tab.chew 11/13/16 [Rx] Atorvastatin Calcium [Lipitor] 80 mg PO HS #0 11/13/16 [Rx] Enoxaparin [Lovenox] 90 mg SQ BID 10 Days 11/13/16 [Rx] Isosorbide MONOnitrate (24 HR) [Imdur] 60 mg PO DAILY #30 tab.er.24h 11/13/16 [ Rx] Lisinopril [Zestril] 5 mg PO DAILY #30 tablet 11/13/16 [Rx] Nitrofurantoin (BID) [Macrobid] 100 mg PO BIDWM #20 capsule 11/13/16 [Rx] Nitroglycerin 0.4 mg SL Q5MIN PRN #30 tab.subl 11/13/16 [Rx] Ranolazine [Ranexa] 1,000 mg PO BID #60 tab.er.12h 11/13/16 [Rx] Allergies/Adverse Reactions: Allergies cephalexin [From Keflex] Allergy (Verified 03/27/16 16:22) Hives Penicillins Allergy (Verified 03/27/16 16:22) Hives venom-honey bee [bee venom (honey bee)] Allergy (Verified 03/27/16 16:22) Anaphylaxis - Respiratory Orders Oxygen / L per min (2L/min via [place]) Smoking Cessation: Smoking cessation has been advised. For more information, call the [place] Tobacco Quit Line at 5-728-BUNZ-NOW. - Advance Directives Code Status: Full Code - Mobility Orders Chair - Rehabiliation Orders Rehab Potential: Fair Rehab Orders: ROM Exercises, Evaluation for Physical Therapy, Evaluation for Occupational Therapy Other: Needs INR monitoring in 2-3 days, as she is on Lovenox bridging and Coumadin; - Diet Orders No Added Salt (KATERINA), No Concentrated Sweets (diabetic), Cardiac CERTIFICATION: I certify that the transfer of the above named patient to an Extended Care Facility is necessary for the continuing treatment of the diagnosis listed. The above information is true and accurate reflection of patient's current condition. Confidential - Redisclosure prohibited without a patient's written consent.
== END 2016-11-13 16:45 | DRG 281 ==
LOC: EMEROO 18:28 → 2ANU 18:28 → 2NNU 11-11 19:42
PROVIDERS: ADMIT Internal Medicine; ATTEND Internal Medicine